=== PATIENT | male | born 1975 | race Caucasian/White ===

== ENCOUNTER 2016-12-18 17:20 | Observation (INO) ==
[2016-12-18] MEDS ORDERED: 0.9 % Sodium Chloride 1,000 ML IVC ONE (17:29)
--- NOTE | 2016-12-18 17:30 | Emergency Department Note ---
Disposition Clinical Impression: New onset seizure, Withdrawal symptoms, alcohol, Hyponatremia Disposition: Admitted As Inpatient Condition: Fair General Adult HPI - General Stated complaint: seizure Time Seen by Provider: 12/18/16 17:23 - Related Data Home Medications Medication Instructions Recorded Confirmed Meloxicam [Mobic] 15 mg PO DAILY 11/28/15 11/28/15 Previous Rx's Medication Instructions Recorded Hydrocodone/Acetaminophen [[place] 1 tab PO TID PRN #15 tab 09/26/15 5-325 Tablet] Aspirin Enteric Coated [Aspirin EC] 325 mg PO BID #40 tablet. 11/28/15 OxyCODONE Immed Rel [Roxicodone 5 5 - 10 mg PO Q6HR PRN #40 tablet 11/28/15 MG] hydrOXYzine pamoate [HydrOXYzine 25 mg PO TID PRN #30 capsule 05/28/16 Pamoate] HYDROcodone/Acet 5/325 mg [[place] 1 tab PO Q6H PRN #8 tab 07/12/16 5-325 mg] Butalb/Acetaminophen/Caffeine 1 each PO BID #20 tablet 07/15/16 [Esgic 50-325-40 mg Tablet] OxyCODONE/APAP 5/325 [Percocet 1 each PO Q6HR PRN #10 tablet 11/15/16 5/325 MG] hydrOXYzine HCl [Hydroxyzine HCl] 25 mg PO TID PRN #20 tab 12/07/16 Famotidine [Pepcid] 40 mg PO DAILY #14 tablet 12/08/16 Allergies Allergy/AdvReac Type Severity Reaction Status Date / Time No Known Allergies Allergy Verified 12/07/16 21:42 Past Medical History - Past Medical History Medical history: Reports: GERD Surgical history: Reports: knee replacement, orthopedic, other Psychiatric history: Reports: no psych history - Social History Smoking Status: Current every day smoker Smokeless Tobacco Status: No Alcohol use: Reports: heavy, recent Drug use: Reports: none Course Vital Signs Temperature 98.8 F 12/18/16 17:22 Pulse Rate 93 12/18/16 17:22 Respiratory Rate 13 12/18/16 17:22 Blood Pressure 129/87 12/18/16 17:22 O2 Sat by Pulse Oximetry 96 12/18/16 17:22 Temperature 98.4 F 12/18/16 21:18 Pulse Rate 85 12/18/16 21:18 Respiratory Rate 16 12/18/16 21:18 Blood Pressure 114/76 12/18/16 21:18 O2 Sat by Pulse Oximetry 95 12/18/16 21:18 Oxygen Delivery Oxygen Delivery Room Air Medical Decision Making - Lab Data Result diagrams: 12/18/16 17:58 12/18/16 17:58 Lab Results 12/18/16 12/18/16 12/18/16 Range/Units 17:58 17:58 17:58 WBC 6.1 (4.3-11.1) K/mcL RBC 4.77 (4.19-5.50) M/mcL Hgb 15.9 (12.9-16.9) g/dL Hct 44.6 (37.5-50.1) % MCV 93.5 (83.0-100.0) fL MCH 33.3 (28.0-33.3) pg MCHC 35.7 H (31.6-35.5) g/dL RDW 12.8 (11.5-14.5) % Plt Count 273 (140-400) K/mcL MPV 9.3 L (9.4-12.4) fL Immature Gran % 0.3 (0-4) % Seg Neutrophils % 63.7 % Lymphocytes % 24.5 % Monocytes % 10.3 % Eosinophils % 1.0 % Basophils % 0.2 % Neutrophils # 3.9 (1.6-8.9) K/mcL Lymphocytes # 1.5 (0.6-4.6) K/mcL Monocytes # 0.6 (0.0-1.3) K/mcL Eosinophils # 0.1 (0.0-0.6) K/mcL Basophils # 0.0 (0.0-0.2) K/mcL Sodium 128 L (136-145) mEq/L Potassium 4.0 (3.5-4.5) mEq/L Chloride 95 L (98-109) mEq/L Carbon Dioxide 24 (19-29) mEq/L BUN 7 L (8-26) mg/dL Creatinine 0.81 (0.72-1.25) mg/dL Est GFR ( Amer) > 60 (> 60) Est GFR (Non-Af Amer) > 60 (> 60) BUN/Creatinine Ratio 9 (6-26) Glucose 107 H (70-99) mg/dL Calculated Osmolality 264 L (280-300) Calcium 9.6 (8.6-10.8) mg/dL Phosphorus 2.3 (2.3-4.7) mg/dL Magnesium 2.2 (1.6-2.6) mg/dL Total Bilirubin 0.2 (0.2-1.2) mg/dL AST 17 (5-34) Units/L ALT 14 (0-55) Units/L Alkaline Phosphatase 95 (38-126) Units/L Serum Total Protein 8.4 H (6.0-8.3) g/dL Albumin 4.3 (3.5-5.0) g/dL Globulin 4.1 H (2.4-3.5) g/dL Albumin/Globulin Ratio 1.0 L (1.1-2.2) Ethyl Alcohol < 10 (0-10) mg/dL Attestation Statement - Attestation Attestation: I examined this patient and my medical decision-making was reviewed with the Resident Physician. I agree with the documented findings, disposition and treatment plan as described except to the extent set forth below. [id number] time provided She arrives from home by EMS. He had a fall with a suspected witnessed seizure. No history of seizure disorders. Patient complains of right knee pain. He admits to drinking alcohol today. Plan of care and management with the resident physician Dr. Saeed 19:28: She states she does not feel back to baseline. He is alert and lucid. He admits to drinking 8-10 16 ounce beers daily for many years. Over the past several days he has cut back on his alcohol intake. I am concerned about alcohol withdrawal
[2016-12-18 18:13] LABS: Basophils % 0.2 %; Eosinophils # 0.1 K/mcL (0.0-0.6); Hematocrit 44.6 % (37.5-50.1); Hemoglobin 15.9 g/dL (12.9-16.9); Immature Granulocytes % 0.3 % (0-4); Lymphocytes # 1.5 K/mcL (0.6-4.6); Lymphocytes % 24.5 %; Mean Corpuscular HGB Conc 35.7 g/dL (31.6-35.5); Mean Corpuscular Hemoglobin 33.3 pg (28.0-33.3); Mean Corpuscular Volume 93.5 fL (83.0-100.0); Mean Platelet Volume 9.3 fL (9.4-12.4); Monocytes # 0.6 K/mcL (0.0-1.3); Monocytes % 10.3 %; Neutrophils # 3.9 K/mcL (1.6-8.9); Platelet Count 273 K/mcL (140-400); Red Blood Count 4.77 M/mcL (4.19-5.50); Red Cell Distribution Width 12.8 % (11.5-14.5); Segmented Neutrophils % 63.7 %
--- NOTE | 2016-12-18 18:20 | Emergency Department Note ---
Disposition Clinical Impression: New onset seizure, Hyponatremia Withdrawal symptoms, alcohol Qualifiers: Complication of substance-induced condition: with unspecified complication Qualified Code(s): F10.239 - Alcohol dependence with withdrawal, unspecified Disposition: Admitted As Inpatient Condition: Fair Time of Disposition: 20:05 General Adult HPI - General Chief complaint: ED Seizure Stated complaint: seizure Time Seen by Provider: 12/18/16 17:23 Source: patient Limitations: no limitations Nursing Notes Reviewed: Yes Vital Signs Reviewed: Yes - History of Present Illness HPI Narrative: 41-year-old male presents to the emergency department via EMS after having a witnessed seizure. This patient does not have any history of seizures. Patient was seizing for approximately 1 minute. He was confused afterwards. Mother concerned that he has not been acting right lately. She states that the has been drinking a lot less alcohol than he normally would drink. Patient states that he is used to drink in 10 16 ounce cans a day and he has been doing that for the past year or so. Patient states that he has only consumed 5 beers in the past few days. He is only drank approximately 24 ounces today. Patient states that his vision is little blurred. Pain Scale: 8 - Related Data Home Medications Medication Instructions Recorded Confirmed Meloxicam [Mobic] 15 mg PO DAILY 11/28/15 11/28/15 Previous Rx's Medication Instructions Recorded Hydrocodone/Acetaminophen [[place] 1 tab PO TID PRN #15 tab 09/26/15 5-325 Tablet] Aspirin Enteric Coated [Aspirin EC] 325 mg PO BID #40 tablet. 11/28/15 OxyCODONE Immed Rel [Roxicodone 5 5 - 10 mg PO Q6HR PRN #40 tablet 11/28/15 MG] hydrOXYzine pamoate [HydrOXYzine 25 mg PO TID PRN #30 capsule 05/28/16 Pamoate] HYDROcodone/Acet 5/325 mg [[place] 1 tab PO Q6H PRN #8 tab 07/12/16 5-325 mg] Butalb/Acetaminophen/Caffeine 1 each PO BID #20 tablet 07/15/16 [Esg[place] 50-325-40 mg Tablet] OxyCODONE/APAP 5/325 [Percocet 1 each PO Q6HR PRN #10 tablet 11/15/16 5/325 MG] hydrOXYzine HCl [Hydroxyzine HCl] 25 mg PO TID PRN #20 tab 12/07/16 Famotidine [Pepcid] 40 mg PO DAILY #14 tablet 12/08/16 Allergies Allergy/AdvReac Type Severity Reaction Status Date / Time No Known Allergies Allergy Verified 12/07/16 21:42 All systems ED: reviewed and negative except as stated. Review of Systems: As Per HPI Constitutional: Reports: weakness. Denies: fever, chills Eyes: Denies: eye pain ENT ED: Denies: ear pain Cardiovascular: Denies: chest pain, palpitations Respiratory: Denies: cough, dyspnea Gastrointestinal: Denies: abdominal pain, nausea, vomiting Genitourinary: Denies: urgency, dysuria Musculoskeletal: Reports: other (Right knee pain). Denies: back pain Integumentary: Denies: rash, abrasion Neurological: Denies: headache Endocrine: Reports: fatigue Past Medical History - Past Medical History Medical history: Reports: GERD Surgical history: Reports: knee replacement, orthopedic, other Psychiatric history: Reports: no psych history - Social History Smoking Status: Current every day smoker Smokeless Tobacco Status: No Alcohol use: Reports: heavy, recent Drug use: Reports: none Physical Exam - General Limitations: no limitations General appearance: alert, in no apparent distress, other (41-year-old male who appears pale) Course Course Narrative: 41-year-old male was a new onset seizure and possible concern for Alcohol withdrawal. CT scan of the head and neck was obtained. This was normal. Patient was complaining of right knee pain. This x-ray was normal as well. The patient was mildly hyponatremic here with a sodium of 128. This is addressed with normal saline. We have also given this patient a banana bag as well. Patient is currently on seizure precautions. He has not had any other seizure in the emergency department today. I admitted this patient to the hospitalist due to concern for alcohol withdrawal and for further workup of this new onset seizure. Patient and family agree with the plan. Hospitalists agreed to admit the patient. Patient was hemodynamically stable at admission. Vital Signs Temperature 98.8 F 12/18/16 17:22 Pulse Rate 93 12/18/16 17:22 Respiratory Rate 13 12/18/16 17:22 Blood Pressure 129/87 12/18/16 17:22 O2 Sat by Pulse Oximetry 96 12/18/16 17:22 Temperature 98.8 F 12/18/16 17:22 Pulse Rate 107 12/18/16 20:01 Respiratory Rate 18 12/18/16 20:01 Blood Pressure 115/92 12/18/16 20:01 O2 Sat by Pulse Oximetry 96 12/18/16 20:01 Oxygen Delivery Oxygen Delivery Room Air Cervical Spine CT 12/18/16 17:31 IMPRESSION: No acute abnormality of the cervical spine. D/ / Mike Emmanuel MD / Mike Emmanuel MD Interpreting Provider: Mike Emmanuel MD Chest X-Ray 12/18/16 17:31 IMPRESSION: No acute abnormality detected. D/ / Erich Villar MD / Erich Villar MD Interpreting Provider: Erich Villar MD Head CT 12/18/16 17:31 IMPRESSION: No acute intracranial abnormality. D/ / Mike Emmanuel MD / Mike Emmanuel MD Interpreting Provider: Mike Emmanuel MD Knee X-Ray 12/18/16 17:32 IMPRESSION: No acute abnormality detected. D/ / Erich Villar MD / Erich Villar MD Interpreting Provider: Erich Villar MD Vital Signs Temperature 98.8 F 12/18/16 17:22 Pulse Rate 93 12/18/16 17:22 Respiratory Rate 13 12/18/16 17:22 Blood Pressure 129/87 12/18/16 17:22 O2 Sat by Pulse Oximetry 96 12/18/16 17:22 Temperature 98.8 F 12/18/16 17:22 Pulse Rate 107 12/18/16 20:01 Respiratory Rate 18 10/14/17 20:01 Blood Pressure 115/92 12/18/16 20:01 O2 Sat by Pulse Oximetry 96 12/18/16 20:01 Oxygen Delivery Oxygen Delivery Room Air Medical Decision Making - Medical Records Medical records reviewed: Yes I reviewed the patient's medical records. - Lab Data Lab results reviewed: Yes I reviewed the patient's lab results. Result diagrams: 12/18/16 17:58 12/18/16 17:58 Lab Results 12/18/16 12/18/16 12/18/16 Range/Units 17:58 17:58 17:58 WBC 6.1 (4.3-11.1) K/mcL RBC 4.77 (4.19-5.50) M/mcL Hgb 15.9 (12.9-16.9) g/dL Hct 44.6 (37.5-50.1) % MCV 93.5 (83.0-100.0) fL MCH 33.3 (28.0-33.3) pg MCHC 35.7 H (31.6-35.5) g/dL RDW 12.8 (11.5-14.5) % Plt Count 273 (140-400) K/mcL MPV 9.3 L (9.4-12.4) fL Immature Gran % 0.3 (0-4) % Seg Neutrophils % 63.7 % Lymphocytes % 24.5 % Monocytes % 10.3 % Eosinophils % 1.0 % Basophils % 0.2 % Neutrophils # 3.9 (1.6-8.9) K/mcL Lymphocytes # 1.5 (0.6-4.6) K/mcL Monocytes # 0.6 (0.0-1.3) K/mcL Eosinophils # 0.1 (0.0-0.6) K/mcL Basophils # 0.0 (0.0-0.2) K/mcL Sodium 128 L (136-145) mEq/L Potassium 4.0 (3.5-4.5) mEq/L Chloride 95 L (98-109) mEq/L Carbon Dioxide 24 (19-29) mEq/L BUN 7 L (8-26) mg/dL Creatinine 0.81 (0.72-1.25) mg/dL Est GFR ( Amer) > 60 (> 60) Est GFR (Non-Af Amer) > 60 (> 60) BUN/Creatinine Ratio 9 (6-26) Glucose 107 H (70-99) mg/dL Calculated Osmolality 264 L (280-300) Calcium 9.6 (8.6-10.8) mg/dL Phosphorus 2.3 (2.3-4.7) mg/dL Magnesium 2.2 (1.6-2.6) mg/dL Total Bilirubin 0.2 (0.2-1.2) mg/dL AST 17 (5-34) Units/L ALT 14 (0-55) Units/L Alkaline Phosphatase 95 (38-126) Units/L Serum Total Protein 8.4 H (6.0-8.3) g/dL Albumin 4.3 (3.5-5.0) g/dL Globulin 4.1 H (2.4-3.5) g/dL Albumin/Globulin Ratio 1.0 L (1.1-2.2) Ethyl Alcohol < 10 (0-10) mg/dL - Radiology Data Radiology results reviewed: Yes I reviewed the patient's radiology results. - EKG Data EKG #1 EKG attestation: Yes I reviewed and interpreted this EKG. EKG results narrative: 17:55 Ventricular rate 86 bpm, FL interval 133 ms, QRS duration 89 ms, QT 337 ms, QTC 380 ms, normal axis. Sinus rhythm with a ventricular rate of 86 bpm. There aresigns of ischemic electrocardiogram changes in comparison to previous EKG on 12/07/2016.
[2016-12-18 18:28] LABS: Alanine Aminotransferase 14 Units/L (0-55); Albumin 4.3 g/dL (3.5-5.0); Alkaline Phosphatase 95 Units/L (38-126); Aspartate Amino Transferase 17 Units/L (5-34); BUN/Creatinine Ratio 9 (6-26); Bilirubin,Total 0.2 mg/dL (0.2-1.2); Blood Urea Nitrogen 7 mg/dL (8-26); Calcium 9.6 mg/dL (8.6-10.8); Carbon Dioxide 24 mEq/L (19-29); Chloride 95 mEq/L (98-109); Globulin 4.1 g/dL (2.4-3.5); Glucose 107 mg/dL (70-99); Magnesium 2.2 mg/dL (1.6-2.6); Osmolality,Calculated 264 (280-300); Phosphorous 2.3 mg/dL (2.3-4.7); Sodium 128 mEq/L (136-145); Total Protein 8.4 g/dL (6.0-8.3); eGFR For African Americans > 60 (> 60); eGFR For Non-African Americans > 60 (> 60)
[2016-12-18] MEDS ORDERED: Acetaminophen 325 MG TABLET PO PRN (21:39)
[2016-12-18] MEDS ORDERED: Ondansetron 4 MG/2 ML VIAL IVP PRN (21:39)
[2016-12-18] MEDS ORDERED: Naloxone 0.4 MG/ML INJ IVP PRN (21:39)
[2016-12-18] MEDS: Thiamine (B-1) 100 MG, Folic Acid 1 MG in 0.9 % Sodium Chloride 50 ML IVPB SCH (21:44)
[2016-12-18] MEDS ORDERED: *HR* LORazepam 2 MG/ML VIAL IVP PRN (21:47)
[2016-12-18] MEDS: Aspirin Enteric Coated 325 MG Tablet PO SCH (22:16)
[2016-12-18] MEDS: 0.9 % Sodium Chloride 1,000 ML IVC SCH (22:16)
[2016-12-18 23:40] LABS: Bilirubin,Urine Negative (Negative); Blood,Urine Negative (Negative); Clarity,Urine Cloudy (Clear); Color,Urine Yellow (Yellow); Glucose,Urine (UA) Normal (Normal); Ketones,Urine Trace mg/dL (Negative); Leukocyte Esterase,Urine Negative (Negative); Nitrite,Urine Negative (Negative); Protein,Urine Negative (Neg-Trace); Specific Gravity,Urine 1.014 (1.010-1.025); Urobilinogen,Urine Normal (Normal)
[2016-12-18 23:43] LABS: Bacteria,Urine None Seen per hpf (None-Few); Hyaline Casts,Urine None Seen per lpf (None-Few); RBC,Urine 0-3 per hpf (0-3); Squamous Epithelial Cell,Urine Moderate per lpf (None-Few)
[2016-12-18 23:46] LABS: Amphetamine Screen,Urine Negative ng/mL (Cutoff=1000); Barbiturate Screen,Urine Negative ng/mL (Cutoff=200); Benzodiazepines Screen,Urine Negative ng/mL (Cutoff=200); Cannabinoid Screen,Urine Negative ng/mL (Cutoff = 50); Cocaine Screen,Urine Negative ng/mL (Cutoff= 300); Opiate Screen,Urine Negative ng/mL (Cutoff=300); Phencyclidine Screen,Urine Negative ng/mL (Cutoff=25)
[2016-12-18 23:53] LABS: Sperm,Urine Present
--- NOTE | 2016-12-19 04:40 | Internal Med History&Physical ---
Date of Encounter: 12/19/16 Time of Encounter: 22:00 Assessment and Plan (1) New onset seizure Current visit: Yes Status: Acute Suspect secondary to relative alcohol withdrawal. Seizure progression and neuro checks ordered. MRI brain and EEG ordered. I do not think that we need to treat him with antiepileptics at this time however morning hospitalist will follow the results and review the case and decides if a neurology consult is necessary. Constant provided to patient and explaining the risks associated with his behavior and alcoholism. (2) Withdrawal symptoms, alcohol Current visit: Yes Status: Acute CIWA protocol ordered thiamine and multivitamin and folic acid ordered Qualifiers: Complication of substance-induced condition: with unspecified complication Qualified Code(s): F10.239 - Alcohol dependence with withdrawal, unspecified (3) Hyponatremia Current visit: Yes Status: Acute Perhaps related to alcoholism repeat in the morning (4) Peripheral neuropathy Current visit: Yes Status: Acute Perhaps related to alcoholism. He is already on Neurontin which she thinks that has not worked. I have suggested to add thiamine multivitamin and folic acid to his regimen Qualifiers: Peripheral neuropathy type: polyneuropathy, unspecified Qualified Code(s): G62.9 - Polyneuropathy, unspecified (5) Tobacco abuse Current visit: No Status: Chronic Counseling provided nicotine patch applied Internal Medicine - H&P: HPI Chief complaint: Seizure Admitted From: Home Plans for Post Hospital Care: Home History of present illness: Mr. Sesay is a 41 year old male who admits being an alcoholic. He drinks 12- 15 beers a day but recently tried to cut down and today had only half of it. He had a witnessed seizure during which he bit his tongue his eyes rolled up and his whole body stiffened. It lasted for a few seconds and then it resolved. He never had any seizure before. As he was brought to ER he became conscious and now he is back to his baseline and fully oriented to time place and person. He is complaining of bilateral lower extremity numbness which is chronic and he has been prescribed Neurontin by his doctors. He denies any headache neck pain abdominal pain nausea vomiting diarrhea dysuria urgency frequency have actually admitted with hematemesis melena. He was complaining of right knee pain however ER obtain multiple x-rays and CAT scan and he is reported to have no new fractures. Past Med Surg Social Fam HX - Past Medical History Medical history: GERD Psychiatric history: no psych history - Past Surgical History Surgical History: knee replacement, orthopedic, other - Social History Smoking Status: Current every day smoker Packs per day: 3/4 Smokeless Tobacco Status: No Alcohol use: heavy, recent Drug use: none - Family History Father Hx Family Cardiac Disorders: Yes (Hypertension, Pacemaker, [place]) Hx Family Respiratory Disorders: No Hx Family Cancer: Yes (Prostate) Hx Family GI Disorders: No Hx Family Genitourinary Disorders: No Hx Family Endocrine Disorder: No Hx Family Musculoskeletal Disorders: No Hx Family Neuromuscular Disorders: No Hx Family Neurologic Disorders: No Hx Family HEENT Disorders: No Hx Family Autoimmune Disorders: No Hx Family Reproductive Disorders: No Hx Family Psychosocial Disorders: No Hx Family Medical Disorders: No Internal Medicine - H&P: Meds Hydrocodone/Acetaminophen [[place] 5-325 Tablet] 1 tab PO TID PRN #15 tab [Rx] Aspirin Enteric Coated [Aspirin EC] 325 mg PO BID #40 tablet. 11/28/15 [Rx] Meloxicam [Mobic] 15 mg PO DAILY 11/28/15 [History] OxyCODONE Immed Rel [Roxicodone 5 MG] 5 - 10 mg PO Q6HR PRN #40 tablet 11/28/15 [Rx] hydrOXYzine pamoate [HydrOXYzine Pamoate] 25 mg PO TID PRN #30 capsule 05/28/16 [Rx] HYDROcodone/Acet 5/325 mg [[place] 5-325 mg] 1 tab PO Q6H PRN #8 tab 07/12/16 [Rx] Butalb/Acetaminophen/Caffeine [Esg[place] 50-325-40 mg Tablet] 1 each PO BID #20 tablet 07/15/16 [Rx] OxyCODONE/APAP 5/325 [Percocet 5/325 MG] 1 each PO Q6HR PRN #10 tablet 11/15/16 [Rx] hydrOXYzine HCl [Hydroxyzine HCl] 25 mg PO TID PRN #20 tab 12/07/16 [Rx] Famotidine [Pepcid] 40 mg PO DAILY #14 tablet 12/08/16 [Rx] 3 Allergy/AdvReac Type Severity Reaction Status Date / Time No Known Allergies Allergy Verified 12/07/16 21:42 All Systems PM: A 10-system review of systems was performed and is negative for pertinent findings except as documented above in the HPI. - Constitutional Constitutional: no chills, no fever(s), no night sweats - EENT Eyes: no change in vision, no discharge, no pain, no photophobia Ears: no ear discharge, no ear pain, no tinnitus Nose, mouth and throat: no dysphagia, no nasal discharge, no neck pain, no sore throat - Cardiovascular Cardiovascular ROS IM: no chest pain, no diaphoresis, no dyspnea, no lightheadedness, no palpitations, no syncope - Respiratory Respiratory: no cough, no dyspnea, no wheezing, no excessive phlegm production - Gastrointestinal Gastrointestinal: no abdominal pain, no diarrhea, no hematemesis, no hematochezia, no melena, no nausea, no vomiting - Musculoskeletal Musculoskeletal ROS IM: no numbness, no tingling - Integumentary Integumentary IM: no rash, no unusual bruising - Neurological Neurological ROS: no confusion, no convulsions, no focal weakness, no numbness, no tingling, no tremor(s) - Hematologic/Lymphatic Hematologic/Lymphatic: no easy bruising - Constitutional Vitals: Temp Pulse Resp BP Pulse Ox 98.6 F 84 16 119/71 96 12/19/16 03:51 12/19/16 03:51 12/19/16 03:51 12/19/16 03:51 12/19/16 03:51 General appearance: Present: A&O X 3, no acute distress, answers questions appropriately - Head Head exam: Present: atraumatic, normocephalic Additional comments: [place] of tongue biting but no active bleed - Eye Eye exam: Present: PERRL, conjuntiva pink, sclera anicteric Pupils: Present: PERRL - Neck Neck exam general surgery: Present: supple, trachea midline. Absent: lymphadenopathy - Respiratory Respiratory exam: Present: CTAB. Absent: accessory muscle use, rales, rhonchi, wheezes - Cardiovascular Cardiovascular exam: Present: RRR, +S1, +S2. Absent: diastolic murmur, gallop, rubs, systolic murmur - GI/Abdominal GI/Abdominal exam: Present: normal bowel sounds, soft, no peritoneal signs. Absent: distended, tenderness - Extremities Exam Extremities exam: Present: warm, radial pulses palpable and symmetrical. Absent : calf tenderness, cyanotic, pedal edema - Neurological Exam Neurological exam: Present: CN II-XII intact, oriented X3, no focal deficits. Absent: pronater drift, facial droop, speech deficit - Skin Skin exam: Present: dry, intact Internal Med - H&P Results - Labs CBC & Chem 7: 12/18/16 17:58 12/18/16 17:58 Labs: Urine 12/18/16 Range/Units 23:22 Urine Color Yellow (Yellow) Urine Clarity Cloudy A (Clear) Urine pH 6.0 (5.0-8.0) pH Units Ur Specific [place] 1.014 (1.010-1.025) Urine Protein Negative (Neg-Trace) mg/dL Urine Glucose (UA) Normal (Normal) mg/dL
[2016-12-19 05:32] LABS: Basophils % 0.2 %; Eosinophils # 0.1 K/mcL (0.0-0.6); Hematocrit 39.4 % (37.5-50.1); Immature Granulocytes % 0.3 % (0-4); Lymphocytes # 2.5 K/mcL (0.6-4.6); Mean Corpuscular HGB Conc 35.5 g/dL (31.6-35.5); Mean Corpuscular Hemoglobin 33.4 pg (28.0-33.3); Mean Platelet Volume 9.7 fL (9.4-12.4); Monocytes # 1.1 K/mcL (0.0-1.3); Neutrophils # 5.2 K/mcL (1.6-8.9); Platelet Count 235 K/mcL (140-400); Red Blood Count 4.19 M/mcL (4.19-5.50); Red Cell Distribution Width 12.7 % (11.5-14.5); Segmented Neutrophils % 58.5 %
[2016-12-19 05:51] LABS: Alanine Aminotransferase 13 Units/L (0-55); Albumin 3.6 g/dL (3.5-5.0); Albumin/Globulin Ratio 1.1 (1.1-2.2); Alkaline Phosphatase 79 Units/L (38-126); Aspartate Amino Transferase 18 Units/L (5-34); BUN/Creatinine Ratio 12 (6-26); Blood Urea Nitrogen 8 mg/dL (8-26); Calcium 8.6 mg/dL (8.6-10.8); Carbon Dioxide 20 mEq/L (19-29); Chloride 105 mEq/L (98-109); Globulin 3.4 g/dL (2.4-3.5); Glucose 81 mg/dL (70-99); Magnesium 2.1 mg/dL (1.6-2.6); Osmolality,Calculated 273 (280-300); Sodium 133 mEq/L (136-145); eGFR For African Americans > 60 (> 60); eGFR For Non-African Americans > 60 (> 60)
[2016-12-19 05:59] LABS: Bilirubin,Total 0.8 mg/dL (0.2-1.2)
[2016-12-19] MEDS: 0.9 % Sodium Chloride 1,000 ML IVC SCH (06:05)
[2016-12-19] MEDS: Aspirin Enteric Coated 325 MG Tablet PO SCH ×2 (08:01→20:00)
[2016-12-19] MEDS: Nicotine 14 MG PATCH.TD24 TD SCH (10:56)
--- NOTE | 2016-12-19 11:05 | Internal Med Progress Note ---
Date of Encounter: 12/19/16 Time of Encounter: 10:50 - Assessment and plan (1) New onset seizure Current Visit: Yes Status: Acute Assessment and plan: Pt reports drinking about 12-15 beers daily, states that yesterday he cut that in half. Seizure was witnessed by family, pt bit his toungue and his eyes rolled up, entire body stiffened. Family reports that it lasted less than 1 minute and resolved. No seizure activity since. Seizure precautions in place. Most likely due to alcohol withdrawl. Pt apparently had post ictal phase and was aware of surroundings by the time he arrived at the ER. New onset, pt has not had a seizure in the past. Head CT negative for intracranial abnormality. MRI and EEG. Consider neurology consult based on results of MRI/EEG (2) Withdrawal symptoms, alcohol Current Visit: Yes Status: Acute Assessment and plan: Most likely the cause of seizure at home. Pt reports heavy drinking since the age of 16. EEG and MRI still pending. Pt has Ativan 1mg q1 hour as needed for withdrawl. Seizure precautions in place. Monitor pt and vital signs. Qualifiers: Complication of substance-induced condition: with unspecified complication Qualified Code(s): F10.239 - Alcohol dependence with withdrawal, unspecified (3) Tobacco abuse Current Visit: Yes Status: Chronic Assessment and plan: Pt smokes 1 PPD and states that he is not interested in quitting. Nicotine patch ordered. (4) Hyponatremia Current Visit: Yes Status: Acute Assessment and plan: Resolving. Most likely do to poor diet and ETOH abuse. IVF have increased sodium to 133 today. Continue to monitor. Pt is able to eat and drink. (5) Peripheral neuropathy Current Visit: Yes Status: Acute Assessment and plan: Pt reports chronic pain and tingling to BLE. Ensure of onset of symptoms, however he states it has been "a while." Pt was unsure of what medication he takes for neuropathy. Will restart Gabapentin when verified by pharmacy. Most likely due to chronic alcoholism. Monitor for safety, fall precautions Gabapentin, home dose. Qualifiers: Peripheral neuropathy type: polyneuropathy, unspecified Qualified Code(s): G62.9 - Polyneuropathy, unspecified (6) DVT prophylaxis Current Visit: Yes Status: Acute Assessment and plan: Encourage early ambulation with assistance. - Time Spent With Patient less than 15 minutes - Subjective Interval history: Pt was seen and assessed at 1050. Two female family members at , questions answered. Pt is alert and awake, poor historian regarding own health history. He is unsure of whether or not he has peripheral neuropathy and what medication he takes for it, he is unaware of how long he has been drinking heavily. Denies n/v/d, SOB, headache, vision changes, chest pain or abd pain. Pt requests to go smoke a cigarette, nicotine patch ordered. Pt also states that he is able to eat and drink, regular diet ordered. - Constitutional Vitals: Temp Pulse Resp BP Pulse Ox 98.7 F 63 17 120/72 97 12/19/16 08:30 12/19/16 08:30 12/19/16 08:30 12/19/16 08:30 12/19/16 08:30 General appearance: Present: cooperative, A&O X 3, pleasant, no acute distress, answers questions appropriately - Head Head exam: Present: atraumatic, normal inspection, normocephalic - Eye Eye exam: Present: EOMI, normal appearance, conjuntiva pink, sclera anicteric - Neck Neck exam general surgery: Present: supple, trachea midline. Absent: lymphadenopathy - Respiratory Respiratory exam: Present: CTAB. Absent: accessory muscle use, chest wall tenderness, rales, respiratory distress, rhonchi, wheezes - Cardiovascular Cardiovascular exam: Present: RRR, +S1, +S2. Absent: diastolic murmur, gallop, rubs, systolic murmur - GI/Abdominal GI/Abdominal exam: Present: hepatomegaly, normal bowel sounds, soft, no peritoneal signs. Absent: distended, tenderness - Extremities Exam Extremities exam: Present: normal capillary refill, normal inspection, warm, radial pulses palpable and symmetrical. Absent: calf tenderness, cyanotic, pedal edema, tenderness - Neurological Exam Neurological exam: Present: alert, oriented X3, no focal deficits, strengths equal and symetr throughout. Absent: facial droop, speech deficit - Skin Skin exam: Present: dry, intact, normal color, warm. Absent: rash Internal Medicine: Result - Labs CBC & Chem 7: 12/19/16 03:00 12/19/16 03:00 Labs: Short CBC 12/19/16 Range/Units 03:00 WBC 8.9 (4.3-11.1) K/mcL Hgb 14.0 D (12.9-16.9) g/dL Hct 39.4 (37.5-50.1) % Plt Count 235 (140-400) K/mcL Neutrophils # 5.2 (1.6-8.9) K/mcL BMP 12/19/16 03:00 Sodium 133 L Potassium 4.0 Chloride 105 Carbon Dioxide 20 BUN 8 Creatinine 0.68 L Glucose 81 Calcium 8.6 Liver Function 12/19/16 Range/Units 03:00 Total Bilirubin 0.8 D (0.2-1.2) mg/dL AST 18 (5-34) Units/L ALT 13 (0-55) Units/L Alkaline Phosphatase 79 (38-126) Units/L Albumin 3.6 (3.5-5.0) g/dL Urine 12/18/16 Range/Units 23:22 Urine Color Yellow (Yellow) Urine Clarity Cloudy A (Clear) Urine pH 6.0 (5.0-8.0) pH Units Ur Specific [place] 1.014 (1.010-1.025) Urine Protein Negative (Neg-Trace) mg/dL Urine Glucose (UA) Normal (Normal) mg/dL Consult Discharge Plan - Plan Referrals: Christie Rasmussen, RV TECHNICIAN [Primary Care Provider] -
[2016-12-19] MEDS: Multivit/Ca/Min/Fe/FA 1 TAB TABLET PO SCH (11:56)
--- NOTE | 2016-12-19 12:33 | Electrocardiograph Report ---
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
[2016-12-19] MEDS ORDERED: hydrOXYzine pamoate 25 MG CAPSULE PO PRN (14:26)
--- NOTE | 2016-12-19 15:30 | Neurology - Consult Note ---
Date of Encounter: 12/19/16 Time of Encounter: 15:28 Assessment and Plan (1) Withdrawal symptoms, alcohol Current Visit: Yes Status: Acute I agree that we are likely dealing with alcohol withdrawal seizure. He does not have a previous history of seizure, there is no other evidence of illicit substances identified, and his neurologic examination is fairly normal. Would expect that he would have had more evidence of sympathetic rebound, as it was not really significant elevation in blood pressure heart rate, or respirations. I do not think that the sodium was low enough to cause neurologic symptoms. Generally expected to be something less than 124 neurologic symptoms occur. Initially regarding agree with EEG and MRI. I would not start AEDs at this time. Further recommendations will be made pending outcome of these tests. Recommend EtOH withdrawal protocol. Agree with smoking cessation program. Agree with thiamine and multivitamin regimen. Qualifiers: Complication of substance-induced condition: with unspecified complication Qualified Code(s): F10.239 - Alcohol dependence with withdrawal, unspecified History of Present Illness HPI: Mr. Sesay is a 41 year old male with a known history of excessive ethanol intake is being seen for neurologic evaluation secondary to suspected seizure. Apparently yesterday he was witnessed to have had a generalized tonic-clonic seizure. He generally drinks only between a 12-15 beers a day but states that he cut down on the day he has seizure to light 1 or 2. He did bite the right side of his tongue and there is some bruising evident there. Currently he feels back to his normal baseline. He denies any headache. He denies ever having a previous episode of seizure. He denied any type of our prior to the event. On admission his sodium was found to be low at 128. His urine tox screen was negative although he apparently has a prescription for lorazepam it was not identified in the urine tox screen. His vital signs of been relatively stable, there is no evidence of sympathetic rebound identified. Past Med Surg Social Fam HX - Past Medical History Medical history: GERD Psychiatric history: no psych history - Past Surgical History Surgical History: knee replacement, orthopedic, other - Social History Smoking Status: Current every day smoker Packs per day: 3/4 Smokeless Tobacco Status: No Alcohol use: heavy, recent Drug use: none - Family History Father Hx Family Cardiac Disorders: Yes (Hypertension, Pacemaker, VA) Hx Family Respiratory Disorders: No Hx Family Cancer: Yes (Prostate) Hx Family GI Disorders: No Hx Family Genitourinary Disorders: No Hx Family Endocrine Disorder: No Hx Family Musculoskeletal Disorders: No Hx Family Neuromuscular Disorders: No Hx Family Neurologic Disorders: No Hx Family HEENT Disorders: No Hx Family Autoimmune Disorders: No Hx Family Reproductive Disorders: No Hx Family Psychosocial Disorders: No Hx Family Medical Disorders: No Medications and Allergies Aspirin Enteric Coated [Aspirin EC] 325 mg PO BID #40 tablet. 11/28/15 [Rx] Meloxicam [Mobic] 15 mg PO DAILY 11/28/15 [History] hydrOXYzine pamoate [HydrOXYzine Pamoate] 25 mg PO TID PRN #30 capsule 05/28/16 [Rx] Famotidine [Pepcid] 40 mg PO DAILY #14 tablet 12/08/16 [Rx] Gabapentin [Neurontin] 300 mg PO TID 12/19/16 [History] Mirtazapine [Remeron] 15 mg PO HS 12/19/16 [History] Multivitamin [One Daily Essential] 1 tab PO DAILY 12/19/16 [History] Venlafaxine HCl [Venlafaxine HCl ER] 75 mg PO DAILY 12/19/16 [History] 3 Allergy/AdvReac Type Severity Reaction Status Date / Time No Known Allergies Allergy Verified 12/07/16 21:42 All Systems: A 10-system review of systems was performed and is negative for pertinent findings except as documented above in the HPI. Review of Systems: 10 point review of systems is consistent with the history of present illness and is otherwise negative. Physical Examination - Vital Signs Vital Signs: Initial Vital Signs Temp Pulse Resp BP Pulse Ox 98.8 F 93 13 129/87 96 12/18/16 17:22 12/18/16 17:22 12/18/16 17:22 12/18/16 17:22 12/18/16 17:22 - Neurologic Detailed motor examination: full strength in all major muscle groups Motor examination - right side: 5/5: deltoids, biceps, triceps, wrist flexion, wrist extension, durable medical equipment technician, hip flexors, tibialis Anterior, quadriceps, toe extension (EHL), plantarflexion Motor examination - left side: 5/5: deltoids, biceps, triceps, wrist flexion, wrist extension, hip flexors, durable medical equipment technician, quadriceps, tibialis Anterior, toe extension (EHL), plantarflexion Reflexes: Biceps: 2+, Triceps: 2+, Brachioradialis: 2+, Achilles: 2+ Mental Status Examination: awake, alert, oriented to person, oriented to place, oriented to time, follows commands appropriately, answers questions appropriately, no agnosia, no aphasia, no aproxia Cranial nerve examination: PERRL, EOMI, visual pacheco intact, corneal reflexes brisk symmetrically, sensory to face intact, mastication intact, no facial asymmetry is present, no dysarthria, hearing is intact symmetrically, soft palate elevates bilaterally upon phonation, gag reflex intact, flexes SCM and trapezius muscles symmetrically with full power, tongue protrudes midline, no atrophy or facial fasiculations present Cerebellar examination: no dysmetria, performs finger to nose and heel to wood symmetrically without ataxia, no gait ataxia, no truncal ataxia, no difficulty with rapid alternating movements Results - Laboratory Findings CBC and BMP: 12/19/16 03:00 12/19/16 03:00 Abnormal lab findings: Abnormal lab results MCH 33.4 pg (28.0-33.3) H 12/19/16 03:00 Sodium 133 mEq/L (136-145) L 12/19/16 03:00 Creatinine 0.68 mg/dL (0.72-1.25) L 12/19/16 03:00 Calculated Osmolality 273 (280-300) L 12/19/16 03:00 Urine Clarity Cloudy (Clear) A 12/18/16 23:22 Urine Ketones Trace mg/dL (Negative) H 12/18/16 23:22 Urine Microscopic WBC 3-5 per hpf (0-3) H 12/18/16 23:22 Ur Squamous Epith Cells Moderate per lpf (None-Few) H 12/18/16 23:22 Consult Discharge Plan - Plan Referrals: Christie Rasmussen, ENGINE MONITOR [Primary Care Provider] -
[2016-12-19] MEDS: Thiamine (B-1) 100 MG, Folic Acid 1 MG in 0.9 % Sodium Chloride 50 ML IVPB SCH (15:55)
[2016-12-19] MEDS: Gabapentin 300 MG CAPSULE PO SCH ×2 (15:55→20:00)
[2016-12-19] MEDS ORDERED: Mirtazapine 15 MG TABLET PO SCH (21:00)
[2016-12-20 05:09] LABS: Basophils % 0.3 %; Eosinophils # 0.2 K/mcL (0.0-0.6); Eosinophils % 2.8 %; Hematocrit 38.7 % (37.5-50.1); Hemoglobin 13.3 g/dL (12.9-16.9); Immature Granulocytes % 0.1 % (0-4); Lymphocytes # 2.7 K/mcL (0.6-4.6); Mean Corpuscular HGB Conc 34.4 g/dL (31.6-35.5); Mean Corpuscular Hemoglobin 33.3 pg (28.0-33.3); Mean Platelet Volume 9.6 fL (9.4-12.4); Monocytes # 0.8 K/mcL (0.0-1.3); Monocytes % 11.4 %; Platelet Count 245 K/mcL (140-400); Red Blood Count 3.99 M/mcL (4.19-5.50); Red Cell Distribution Width 13.1 % (11.5-14.5); Segmented Neutrophils % 44.4 %
[2016-12-20 05:18] LABS: BUN/Creatinine Ratio 16 (6-26); Blood Urea Nitrogen 13 mg/dL (8-26); Carbon Dioxide 25 mEq/L (19-29); Chloride 109 mEq/L (98-109); Glucose 68 mg/dL (70-99); Osmolality,Calculated 290 (280-300); Potassium 4.2 mEq/L (3.5-4.5); eGFR For African Americans > 60 (> 60); eGFR For Non-African Americans > 60 (> 60)
[2016-12-20 05:19] LABS: Sodium 141 mEq/L (136-145)
[2016-12-20] MEDS: Aspirin Enteric Coated 325 MG Tablet PO SCH (08:45)
[2016-12-20] MEDS: Nicotine 14 MG PATCH.TD24 TD SCH (08:46)
[2016-12-20] MEDS: Gabapentin 300 MG CAPSULE PO SCH ×2 (08:46→14:46)
[2016-12-20] MEDS: Multivit/Ca/Min/Fe/FA 1 TAB TABLET PO SCH (08:49)
[2016-12-20] MEDS ORDERED: Famotidine 20 MG TABLET PO SCH (09:00)
[2016-12-20] MEDS ORDERED: Venlafaxine XR (24 HR) 75 MG CAP.ER.24H PO SCH (09:00)
--- NOTE | 2016-12-20 15:25 | EEG/EMG/Oth Biometrics Report ---
EEG Procedure Report Date of procedure: 12/20/16 EEG Procedure: Routine EEG Procedure Note: This is a report of a 21 channel bipolar and referential montage EEG. The posterior dominant rhythm of 8-9 Hz moderate voltage alpha frequency is identified symmetrically in the posterior head regions. This rhythm attenuates symmetrically with eye opening. Hyperventilation is performed and does not significantly alter the recording. Periods of drowsiness and stage II sleep are identified as reference by dropout of the posterior dominant rhythm, and the emergence of vertex activity, K complexes, and sleep spindles. Photic stimulation is performed and produces a symmetric driving response. The EKG rhythm strip reveals normal sinus rhythm at 72 bpm. Impressions: This EEG recording is within normal limits. It is no evidence of epileptiform activity identified during the study. Comment: A normal EEG does not preclude the diagnosis of seizure or epilepsy. If the clinical suspicion for seizure activity is high, serial EEGs or perhaps a prolonged recording may increase the yield. Please correlate clinically.
[2016-12-20 15:31] VITALS: BP 132/83
--- NOTE | 2016-12-20 15:50 | Discharge Summary ---
Date of Encounter: 12/20/16 Time of Encounter: 08:40 - Discharge Diagnosis (1) New onset seizure Priority: Primary Status: Acute Comments: Pt reports drinking about 12-15 beers daily, states that yesterday he cut that in half. Seizure was witnessed by family, pt bit his toungue and his eyes rolled up, entire body stiffened. Family reports that it lasted less than 1 minute and resolved. No seizure activity since. Seizure precautions in place. Most likely due to alcohol withdrawl. Pt apparently had post ictal phase and was aware of surroundings by the time he arrived at the ER. New onset, pt has not had a seizure in the past. Head CT negative for intracranial abnormality. MRI shows mild cerebral atrophy , no acute abnormality. EEG was negative for seizure activity. Discussed alcohol cessation with patient, he states that he can quit whenever he wants to and is not interested in support or cutting back slowly. He says he will just stop drinking. Head CT 12/18/16 17:31 IMPRESSION: No acute intracranial abnormality. D/ / Mike Emmanuel MD / Mike Emmanuel MD Interpreting Provider: Mike Emmanuel MD Brain MRI 12/20/16 21:44 IMPRESSION: Mild cerebral atrophy. No acute brain parenchymal abnormality. D/ / 12/20/2016 11:14:22 Rafia Weir MD / esequiel Interpreting Provider: Rafia Weir MD (2) Withdrawal symptoms, alcohol Priority: Secondary Status: Acute Comments: Withdrawal symptoms most likely the cause of seizures at home. Patient reports he is heavy drinking since age of 16. EEG and MRI were both negative. Head CT was negative. Patient has had Ativan 1 mg every hour as needed for withdrawal symptoms. Plan as above. Qualifiers: Complication of substance-induced condition: with unspecified complication Qualified Code(s): F10.239 - Alcohol dependence with withdrawal, unspecified (3) Tobacco abuse Priority: Secondary Status: Chronic Comments: Patient smokes one pack a day and states he is not interested in smoking cessation. Nicotine patch was ordered. I also will send a prescription home for discharge. (4) Hyponatremia Priority: Secondary Status: Acute Comments: Result. Hyponatremia most likely due to poor diet and EtOH abuse. Patient had IV fluids which helped increase the sodium. Continue to monitor. Patient was able to eat and drink and tolerate a regular diet. (5) Peripheral neuropathy Priority: Secondary Status: Acute Comments: Pt reports chronic pain and tingling to BLE. Ensure of onset of symptoms, however he states it has been "a while." Pt was unsure of what medication he takes for neuropathy. Patient was on gabapentin on her medication list, was restarted here. Most likely due to chronic alcoholism. Qualifiers: Peripheral neuropathy type: polyneuropathy, unspecified Qualified Code(s): G62.9 - Polyneuropathy, unspecified (6) DVT prophylaxis Priority: Secondary Status: Acute Comments: Early ambulation. - Discharge Medications Prescriptions: Nicotine Patch [Nicoderm] 14 mg TD DAILY #28 patch.[id number] Home Medications: Aspirin Enteric Coated [Aspirin EC] 325 mg PO BID #40 tablet. 11/28/15 [Rx] Meloxicam [Mobic] 15 mg PO DAILY 11/28/15 [History] hydrOXYzine pamoate [HydrOXYzine Pamoate] 25 mg PO TID PRN #30 capsule 05/28/16 [Rx] Famotidine [Pepcid] 40 mg PO DAILY #14 tablet 12/08/16 [Rx] Gabapentin [Neurontin] 300 mg PO TID 12/19/16 [History] Mirtazapine [Remeron] 15 mg PO HS 12/19/16 [History] Multivitamin [One Daily Essential] 1 tab PO DAILY 12/19/16 [History] Venlafaxine HCl [Venlafaxine HCl ER] 75 mg PO DAILY 12/19/16 [History] Nicotine Patch [Nicoderm] 14 mg TD DAILY #28 patch.td24 12/20/16 [Rx] Allergies/Adverse Reactions: 3 Allergy/AdvReac Type Severity Reaction Status Date / Time No Known Allergies Allergy Verified 12/07/16 21:42 Procedures/tests Complete & Pending: Procedures Performed prior 72 hours Category Date Time Status MR head/brain wo con [MR] Routine MRI 12/20/16 21:44 Draft Date of admission: 12/18/16 19:53 Primary care physician: Christie Rasmussen CNP Consults: 12/18/16 21:47 Consult to Research Rn Spec [CONS] Routine Reason for SW Consult: Alcohol rehabilitation 12/20/16 12:16 Consult to Interpret Exam [CONS] Routine Consulting Provider: Adam Funes Consult to Interpret Exam: Interpret EEG Discharging clinician: Stephanie Burns Anticipated date of discharge: 12/20/16 - Patient Status Disposition: Home, Self-Care Condition: Good Functional capacity at discharge: independent ambulation Overall status at discharge: patient is back to baseline - Discharge Instructions Follow Up With: Christie Rasmussen, TAILING MACHINE OPERATOR [Primary Care Provider] - Forms: ED Satisfaction Letter Additional Instructions: Follow up with PCP in the next 7-10 days for a follow up visit. Return to the ER as needed for any other problems or concerns. Try to stop smoking. Wean yourself slowly off of alcohol if you are going to quit. Return to your normal activities as tolerated and keep taking your home medications as directed. - Diet and Activity Activity: increase activity as tolerated Diet: advance to your usual diet Hospital course: Mr. Sesay is a 41 year old male with a history of chronic alcoholism who presents with hyponatremia, seizure after drinking half of the amount of alcohol that he normally drinks. Pt with chronic peripheral neuropathy and history of smoking. He has no prior history of seizures. MRI and EEG were negative. Labs are stable and WNL. Vitals are stable. Pt has been seen by neurology and no further follow up is required. Please see assessment and plan for hospital course. Pt is ready for discharge. Time spent discussing smoking cessation with patient: 3 to 10 minutes - Time Spent with Patient Total time spent providing and/or coordinating discharge services: Less than 30 minutes - Constitutional Vitals: Temp Pulse Resp BP Pulse Ox 98.4 F 90 15 132/83 96 12/20/16 15:28 12/20/16 15:28 12/20/16 15:28 12/20/16 15:28 12/20/16 15:28 General appearance: Present: cooperative, A&O X 3, pleasant, no acute distress, answers questions appropriately - Head Head exam: Present: atraumatic, normal inspection, normocephalic - Eye Eye exam: Present: normal appearance, conjuntiva pink, sclera anicteric - Neck Neck exam general surgery: Present: supple, trachea midline. Absent: lymphadenopathy, tenderness - Respiratory Respiratory exam: Present: CTAB. Absent: accessory muscle use, chest wall tenderness, rales, rhonchi, wheezes - Cardiovascular Cardiovascular exam: Present: RRR, +S1, +S2. Absent: diastolic murmur, gallop, rubs, systolic murmur - GI/Abdominal GI/Abdominal exam: Present: normal bowel sounds, soft. Absent: distended, hepatomegaly, tenderness - Extremities Exam Extremities exam: Present: normal capillary refill, normal inspection, warm, radial pulses palpable and symmetrical. Absent: calf tenderness, cyanotic, pedal edema - Neurological Exam Neurological exam: Present: alert, oriented X3, no focal deficits - Skin Skin exam: Present: dry, intact, normal color, warm. Absent: rash
== END 2016-12-20 18:40 | disposition home or self-care (01) ==
LOC: EMEROO 17:20 → 3BNU 17:20
PROVIDERS: ADMIT Internal Medicine; ATTEND Registered Nurse

== ENCOUNTER 2018-03-10 08:08 | Observation (INO) ==
[2018-03-10] MEDS ORDERED: 0.9 % Sodium Chloride 1,000 ML IVC ONE (08:16)
[2018-03-10] MEDS ORDERED: Thiamine (B-1) 100 MG in D5% in Water 50 ML IVPB ONE (08:17)
[2018-03-10] MEDS ORDERED: Folic Acid 1 MG in D5% in Water 50 ML IVPB ONE (08:17)
[2018-03-10] MEDS ORDERED: *HR* LORazepam 2 MG/ML VIAL IVP ONE (08:20)
--- NOTE | 2018-03-10 08:24 | Emergency Department Note ---
Disposition Clinical Impression: Alcohol withdrawal, Hyponatremia Disposition: Admitted As Inpatient Condition: Fair General Adult HPI - General Chief complaint: ED Seizure Stated complaint: poss seizure Time Seen by Provider: 03/10/18 08:11 Source: EMS Limitations: no limitations Nursing Notes Reviewed: Yes Vital Signs Reviewed: Yes - History of Present Illness Pain Scale: 0 - Related Data Home Medications Medication Instructions Recorded Confirmed RX: Multivitamin [One Daily 1 tab PO DAILY 12/19/16 03/10/18 Essential] BuPROPion XL (24 HR) [Wellbutrin 150 mg PO DAILY 03/10/18 03/10/18 XL] Gabapentin [Neurontin] 600 mg PO QID 03/10/18 03/10/18 Ibuprofen [Advil] 400 mg PO DAILY PRN 03/10/18 03/10/18 Melatonin 3 mg PO QPM PRN 03/10/18 03/10/18 Nabumetone 750 mg PO BID 03/10/18 03/10/18 Venlafaxine HCl [Venlafaxine HCl 150 mg PO DAILY 03/10/18 03/10/18 ER] Allergies Allergy/AdvReac Type Severity Reaction Status Date / Time No Known Allergies Allergy Verified 03/10/18 10:12 Past Medical History - Past Medical History Medical history: Reports: GERD Surgical history: Reports: knee replacement, orthopedic, other Psychiatric history: Reports: no psych history - Social History Smoking Status: Current every day smoker Smokeless Tobacco Status: No Alcohol use: Reports: heavy, recent Drug use: Reports: prescription drug abuse Physical Exam - General Limitations: no limitations General appearance: alert, in no apparent distress Course Vital Signs Temperature 98.1 F 03/10/18 08:11 Pulse Rate 91 03/10/18 08:11 Respiratory Rate 20 03/10/18 08:11 Blood Pressure 132/92 03/10/18 08:11 O2 Sat by Pulse Oximetry 99 03/10/18 08:11 Temperature 98.5 F 03/10/18 13:40 Pulse Rate 72 03/10/18 13:40 Respiratory Rate 16 03/10/18 13:40 Blood Pressure 115/78 03/10/18 13:40 O2 Sat by Pulse Oximetry 94 03/10/18 13:40 Oxygen Delivery Oxygen Delivery Room Air Medical Decision Making - [facility] Narrative Medical decision making narrative: Chest X-Ray 03/10/18 08:13 IMPRESSION: No acute cardiopulmonary findings. D/ / Mecca Edwards MD / Mecca Edwards MD Interpreting Provider: Mecca Edwards MD 1115 hrs.: Patient's remained stable here. He does have hyponatremia which she has had before though this is lower than that. I am not certain if that has a history of seizures or not as much as his prior alcohol withdrawal. He was seen by neurology in the past and they did not recommend any antiepileptic medications. Sore neck and place him on a at this point. In for seizure with alcoholism observe to rule out DTs. - Lab Data Result diagrams: 03/10/18 08:14 03/10/18 08:16 Lab Results 03/10/18 03/10/18 03/10/18 Range/Units 08:14 08:16 08:26 WBC 9.4 D (4.3-11.1) K/mcL RBC 4.68 (4.19-5.50) M/mcL Hgb 15.6 D (12.9-16.9) g/dL Hct 43.4 (37.5-50.1) % MCV 92.7 (83.0-100.0) fL MCH 33.3 (28.0-33.3) pg MCHC 35.9 H (31.6-35.5) g/dL RDW 13.8 (11.5-14.5) % Plt Count 315 (140-400) K/mcL MPV 10.0 (9.4-12.4) fL Immature Gran % 0.4 (0-4) % Seg Neutrophils % 68.9 % Lymphocytes % 22.4 % Monocytes % 7.2 % Eosinophils % 1.0 % Basophils % 0.1 % Neutrophils # 6.5 (1.6-8.9) K/mcL Lymphocytes # 2.1 (0.6-4.6) K/mcL Monocytes # 0.7 (0.0-1.3) K/mcL Eosinophils # 0.1 (0.0-0.6) K/mcL Basophils # 0.0 (0.0-0.2) K/mcL Sodium 128 L (136-145) mEq/L Potassium 4.2 (3.5-5.1) mEq/L Chloride 93 L (98-107) mEq/L Carbon Dioxide 22 L (23-29) mEq/L BUN 5 L (6-20) mg/dL Creatinine 0.74 (0.70-1.30) mg/dL Est GFR ( Amer) > 60 (> 60) Est GFR (Non-Af Amer) > 60 (> 60) BUN/Creatinine Ratio 7 (6-26) Glucose 134 H (70-105) mg/dL POC Glucose 123 H (70-99) mg/dL Calculated Osmolality 265 L (280-300) Lactic Acid (0.5-2.2) mmol/L Calcium 9.5 (8.6-10.3) mg/dL Total Bilirubin 0.8 (0.3-1.0) mg/dL AST 26 (13-39) Units/L ALT 16 (7-52) Units/L Alkaline Phosphatase 82 (34-104) Units/L Troponin I < 0.03 (< 0.04) ng/mL Serum Total Protein 7.9 (6.4-8.9) g/dL Albumin 4.9 (3.5-5.7) g/dL Globulin 3.0 (2.4-3.5) g/dL Albumin/Globulin Ratio 1.6 (1.1-2.2) Urine Color (Yellow) Urine Clarity (Clear) Urine pH (5.0-8.0) pH Units Ur Specific [place] (1.010-1.025) Urine Protein (Neg-Trace) mg/dL Urine Glucose (UA) (Normal) mg/dL Urine Ketones (Negative) mg/dL Urine Blood (Negative) Urine Nitrite (Negative) Urine Bilirubin (Negative) Urine Urobilinogen (Normal) mg/dL Ur Leukocyte Esterase (Negative) Urine Microscopic RBC (0-3) per hpf Urine Microscopic WBC (0-3) per hpf Ur Squamous Epith Cells (None-Few) per lpf Urine Bacteria (None-Few) per hpf Hyaline Casts (None-Few) per lpf Ethyl Alcohol < 10 (Less than 10) mg/dL 03/10/18 03/10/18 Range/Units 09:14 09:44 WBC (4.3-11.1) K/mcL RBC (4.19-5.50) M/mcL Hgb (12.9-16.9) g/dL Hct (37.5-50.1) % MCV (83.0-100.0) fL MCH (28.0-33.3) pg MCHC (31.6-35.5) g/dL RDW (11.5-14.5) % Plt Count (140-400) K/mcL MPV (9.4-12.4) fL Immature Gran % (0-4) % Seg Neutrophils % % Lymphocytes % % Monocytes % % Eosinophils % % Basophils % % Neutrophils # (1.6-8.9) K/mcL Lymphocytes # (0.6-4.6) K/mcL Monocytes # (0.0-1.3) K/mcL Eosinophils # (0.0-0.6) K/mcL Basophils # (0.0-0.2) K/mcL Sodium (136-145) mEq/L Potassium (3.5-5.1) mEq/L Chloride (98-107) mEq/L Carbon Dioxide (23-29) mEq/L BUN (6-20) mg/dL Creatinine (0.70-1.30) mg/dL Est GFR ( Amer) (> 60) Est GFR (Non-Af Amer) (> 60) BUN/Creatinine Ratio (6-26) Glucose (70-105) mg/dL POC Glucose (70-99) mg/dL Calculated Osmolality (280-300) Lactic Acid 1.9 (0.5-2.2) mmol/L Calcium (8.6-10.3) mg/dL Total Bilirubin (0.3-1.0) mg/dL AST (13-39) Units/L ALT (7-52) Units/L Alkaline Phosphatase (34-104) Units/L Troponin I (< 0.04) ng/mL Serum Total Protein (6.4-8.9) g/dL Albumin (3.5-5.7) g/dL Globulin (2.4-3.5) g/dL Albumin/Globulin Ratio (1.1-2.2) Urine Color Dark Yellow (Yellow) Urine Clarity Hazy (Clear) Urine pH 6.5 (5.0-8.0) pH Units Ur Specific [place] 1.023 (1.010-1.025) Urine Protein 100 H (Neg-Trace) mg/dL Urine Glucose (UA) Normal (Normal) mg/dL Urine Ketones Trace H (Negative) mg/dL Urine Blood Negative (Negative) Urine Nitrite Negative (Negative) Urine Bilirubin Negative (Negative) Urine Urobilinogen Normal (Normal) mg/dL Ur Leukocyte Esterase Negative (Negative) Urine Microscopic RBC 5-15 H (0-3) per hpf Urine Microscopic WBC 3-5 H (0-3) per hpf Ur Squamous Epith Cells Many H (None-Few) per lpf Urine Bacteria None Seen (None-Few) per hpf Hyaline Casts None Seen (None-Few) per lpf Ethyl Alcohol (Less than 10) mg/dL Attestation Statement - Attestation Attestation: This documentation is done with the assistance of Dragon dictation. Despite efforts made to ensure accuracy, there may be inaccuracies in special crimes investigator or spelling and typographical errors. I examined this patient and my medical decision-making was reviewed with the [facility] Physician. I agree with the documented findings, disposition and treatment plan as described except to the extent set forth below. Patient seen and evaluated on arrival with EMS and Dr. Guevara, I agree with his evaluation management plan, I supervised care the patient's stay. Per EMS patient had a seizure per family this morning history of seizures but none for a while. Apparently 3 seizures in the past 30 days to obtuse 2 months. Patient states he was on medication but not now. Looking through her old chart looks like these were alcohol withdrawal seizures which is what I suspect today. He said he last drank about midnight last night. He is little bit shaky now. But he is awake. Poor historian may be postictal. When a treat him as now culture all seizure and reassess and most likely will need admission.
[2018-03-10 08:53] LABS: Basophils % 0.1 %; Eosinophils # 0.1 K/mcL (0.0-0.6); Hematocrit 43.4 % (37.5-50.1); Immature Granulocytes % 0.4 % (0-4); Lymphocytes # 2.1 K/mcL (0.6-4.6); Lymphocytes % 22.4 %; Mean Corpuscular HGB Conc 35.9 g/dL (31.6-35.5); Mean Corpuscular Hemoglobin 33.3 pg (28.0-33.3); Mean Corpuscular Volume 92.7 fL (83.0-100.0); Monocytes # 0.7 K/mcL (0.0-1.3); Monocytes % 7.2 %; Neutrophils # 6.5 K/mcL (1.6-8.9); Platelet Count 315 K/mcL (140-400); Red Blood Count 4.68 M/mcL (4.19-5.50); Red Cell Distribution Width 13.8 % (11.5-14.5); Segmented Neutrophils % 68.9 %
--- NOTE | 2018-03-10 08:58 | Emergency Department Note ---
Disposition Clinical Impression: Hyponatremia Alcohol withdrawal Qualifiers: Complication of substance-induced condition: with unspecified complication Qualified Code(s): F10.239 - Alcohol dependence with withdrawal, unspecified Disposition: Admitted As Inpatient Condition: Fair Time of Disposition: 15:29 General Adult HPI - General Chief complaint: ED Seizure Stated complaint: poss seizure Time Seen by Provider: 03/10/18 08:11 Source: EMS Mode of arrival: EMS Limitations: no limitations Nursing Notes Reviewed: Yes Vital Signs Reviewed: Yes - History of Present Illness HPI Narrative: Patient is a 43-year-old male with past medical history of alcoholism as well as questionable seizure disorder presents emergency Department by squad with concerns for seizure-like activity. According to EMS at around 7:40AM the patient is poured it had a seizure by his parents in which she lives with. They state upon their arrival patient was not actively seizing was able to answer questions appropriately. According to EMS report family states the patient has had intermittent seizures over the past 3 days. Patient himself is a poor historian. He answers I do not know to majority of my questions. States he drinks roughly at least one 12 pack of beer daily. He states that he does not want to drink anymore and he wants to quit. He denies any other drug use. States that he takes medicines everyday however he is unsure which medicines he takes his parents make sure that he takes them. At this time he denies any fevers, headache, chills, focal neurological deficit, chest pain, dyspnea, cough, abdominal pain. Pain Scale: 0 - Related Data Home Medications Medication Instructions Recorded Confirmed Multivitamin [One Daily Essential] 1 tab PO DAILY 12/19/16 03/10/18 BuPROPion XL (24 HR) [Wellbutrin 150 mg PO DAILY 03/10/18 03/10/18 XL] Gabapentin [Neurontin] 600 mg PO QID 03/10/18 03/10/18 Ibuprofen [Advil] 400 mg PO DAILY PRN 03/10/18 03/10/18 Melatonin 3 mg PO QPM PRN 03/10/18 03/10/18 Nabumetone 750 mg PO BID 03/10/18 03/10/18 Venlafaxine HCl [Venlafaxine HCl 150 mg PO DAILY 03/10/18 03/10/18 ER] Allergies Allergy/AdvReac Type Severity Reaction Status Date / Time No Known Allergies Allergy Verified 03/10/18 10:12 All systems ED: reviewed and negative except as stated. Review of Systems: As Per HPI Constitutional: Denies: fever, chills Cardiovascular: Denies: chest pain, palpitations Respiratory: Denies: cough, dyspnea, wheezes, sputum production Gastrointestinal: Denies: abdominal pain, nausea, vomiting, diarrhea Genitourinary: Denies: dysuria Musculoskeletal: Denies: back pain, neck pain Integumentary: Denies: rash Neurological: Denies: headache, weakness, numbness, paresthesias, confusion, abnormal gait, vertigo Past Medical History - Past Medical History Attestation: Yes The following information was validated with the patient. Medical history: Reports: GERD Surgical history: Reports: knee replacement, orthopedic, other Psychiatric history: Reports: no psych history - Social History Smoking Status: Current every day smoker Smokeless Tobacco Status: No Alcohol use: Reports: heavy, recent Drug use: Reports: prescription drug abuse Physical Exam - General Limitations: no limitations General appearance: alert, other (mild diffuse tremor) - Head Head exam: atraumatic, normocephalic, normal inspection - Eye Eye exam: Present: normal appearance, PERRL, EOMI - ENT ENT exam: normal exam, normal oropharynx, mucous membranes dry - Neck Neck exam: Present: normal inspection, full ROM, trachea midline - Chest Chest inspection: Present: normal inspection, symmetric chest wall rise - Respiratory Respiratory exam: Present: normal lung sounds bilaterally. Absent: respiratory distress, wheezes - Cardiovascular Cardiovascular exam: Present: tachycardia, +S1, +S2 - Abdominal Exam Abdominal exam: Present: soft, Non-Tender. Absent: tenderness, distention, guarding, rebound, rigidity - Extremities Exam Extremities exam: Present: normal inspection, full ROM. Absent: tenderness, pedal edema - Back Exam Back exam: Present: normal inspection, full ROM. Absent: tenderness Course Course Narrative: Patient underwent evaluation for alcohol withdrawals as well as seizure-like activity. Basic labs were drawn showed a mild hyponatremia. Patient received dose of Ativan as well as vitamin supplementation liter of fluids. Symptoms and tremors have improved after this. Upon review of the records patient has been seen by neurology in the past which she had a workup done including an EEG is out of the time that the patient not have a seizure disorder. I discussed patient's case with the hospitalist on-call, Dr. Beasley, he agrees to accept the patient for EtOH withdrawals. Vital Signs Temperature 98.1 F 03/10/18 08:11 Pulse Rate 91 03/10/18 08:11 Respiratory Rate 20 03/10/18 08:11 Blood Pressure 132/92 03/10/18 08:11 O2 Sat by Pulse Oximetry 99 03/10/18 08:11 Temperature 98.5 F 03/10/18 13:40 Pulse Rate 72 03/10/18 13:40 Respiratory Rate 16 03/10/18 13:40 Blood Pressure 115/78 03/10/18 13:40 O2 Sat by Pulse Oximetry 94 03/10/18 13:40 Oxygen Delivery Oxygen Delivery Room Air Medical Decision Making - Medical Records Medical records reviewed: Yes I reviewed the patient's medical records. - Lab Data Lab results reviewed: Yes I reviewed the patient's lab results. Result diagrams: 03/10/18 08:14 03/10/18 08:16 Lab Results 03/10/18 03/10/18 03/10/18 Range/Units 08:14 08:16 08:26 WBC 9.4 D (4.3-11.1) K/mcL RBC 4.68 (4.19-5.50) M/mcL Hgb 15.6 D (12.9-16.9) g/dL Hct 43.4 (37.5-50.1) % MCV 92.7 (83.0-100.0) fL MCH 33.3 (28.0-33.3) pg MCHC 35.9 H (31.6-35.5) g/dL RDW 13.8 (11.5-14.5) % Plt Count 315 (140-400) K/mcL MPV 10.0 (9.4-12.4) fL Immature Gran % 0.4 (0-4) % Seg Neutrophils % 68.9 % Lymphocytes % 22.4 % Monocytes % 7.2 % Eosinophils % 1.0 % Basophils % 0.1 % Neutrophils # 6.5 (1.6-8.9) K/mcL Lymphocytes # 2.1 (0.6-4.6) K/mcL Monocytes # 0.7 (0.0-1.3) K/mcL Eosinophils # 0.1 (0.0-0.6) K/mcL Basophils # 0.0 (0.0-0.2) K/mcL Sodium 128 L (136-145) mEq/L Potassium 4.2 (3.5-5.1) mEq/L Chloride 93 L (98-107) mEq/L Carbon Dioxide 22 L (23-29) mEq/L BUN 5 L (6-20) mg/dL Creatinine 0.74 (0.70-1.30) mg/dL Est GFR ( Amer) > 60 (> 60) Est GFR (Non-Af Amer) > 60 (> 60) BUN/Creatinine Ratio 7 (6-26) Glucose 134 H (70-105) mg/dL POC Glucose 123 H (70-99) mg/dL Calculated Osmolality 265 L (280-300) Lactic Acid (0.5-2.2) mmol/L Calcium 9.5 (8.6-10.3) mg/dL Total Bilirubin 0.8 (0.3-1.0) mg/dL AST 26 (13-39) Units/L ALT 16 (7-52) Units/L Alkaline Phosphatase 82 (34-104) Units/L Troponin I < 0.03 (< 0.04) ng/mL Serum Total Protein 7.9 (6.4-8.9) g/dL Albumin 4.9 (3.5-5.7) g/dL Globulin 3.0 (2.4-3.5) g/dL Albumin/Globulin Ratio 1.6 (1.1-2.2) Urine Color (Yellow) Urine Clarity (Clear) Urine pH (5.0-8.0) pH Units Ur Specific [place] (1.010-1.025) Urine Protein (Neg-Trace) mg/dL Urine Glucose (UA) (Normal) mg/dL Urine Ketones (Negative) mg/dL Urine Blood (Negative) Urine Nitrite (Negative) Urine Bilirubin (Negative) Urine Urobilinogen (Normal) mg/dL Ur Leukocyte Esterase (Negative) Urine Microscopic RBC (0-3) per hpf Urine Microscopic WBC (0-3) per hpf Ur Squamous Epith Cells (None-Few) per lpf Urine Bacteria (None-Few) per hpf Hyaline Casts (None-Few) per lpf Ethyl Alcohol < 10 (Less than 10) mg/dL 03/10/18 03/10/18 Range/Units 09:14 09:44 WBC (4.3-11.1) K/mcL RBC (4.19-5.50) M/mcL Hgb (12.9-16.9) g/dL Hct (37.5-50.1) % MCV (83.0-100.0) fL MCH (28.0-33.3) pg MCHC (31.6-35.5) g/dL RDW (11.5-14.5) % Plt Count (140-400) K/mcL MPV (9.4-12.4) fL Immature Gran % (0-4) % Seg Neutrophils % % Lymphocytes % % Monocytes % % Eosinophils % % Basophils % % Neutrophils # (1.6-8.9) K/mcL Lymphocytes # (0.6-4.6) K/mcL Monocytes # (0.0-1.3) K/mcL Eosinophils # (0.0-0.6) K/mcL Basophils # (0.0-0.2) K/mcL Sodium (136-145) mEq/L Potassium (3.5-5.1) mEq/L Chloride (98-107) mEq/L Carbon Dioxide (23-29) mEq/L BUN (6-20) mg/dL Creatinine (0.70-1.30) mg/dL Est GFR ( Amer) (> 60) Est GFR (Non-Af Amer) (> 60) BUN/Creatinine Ratio (6-26) Glucose (70-105) mg/dL POC Glucose (70-99) mg/dL Calculated Osmolality (280-300) Lactic Acid 1.9 (0.5-2.2) mmol/L Calcium (8.6-10.3) mg/dL Total Bilirubin (0.3-1.0) mg/dL AST (13-39) Units/L ALT (7-52) Units/L Alkaline Phosphatase (34-104) Units/L Troponin I (< 0.04) ng/mL Serum Total Protein (6.4-8.9) g/dL Albumin (3.5-5.7) g/dL Globulin (2.4-3.5) g/dL Albumin/Globulin Ratio (1.1-2.2) Urine Color Dark Yellow (Yellow) Urine Clarity Hazy (Clear) Urine pH 6.5 (5.0-8.0) pH Units Ur Specific [place] 1.023 (1.010-1.025) Urine Protein 100 H (Neg-Trace) mg/dL Urine Glucose (UA) Normal (Normal) mg/dL Urine Ketones Trace H (Negative) mg/dL Urine Blood Negative (Negative) Urine Nitrite Negative (Negative) Urine Bilirubin Negative (Negative) Urine Urobilinogen Normal (Normal) mg/dL Ur Leukocyte Esterase Negative (Negative) Urine Microscopic RBC 5-15 H (0-3) per hpf Urine Microscopic WBC 3-5 H (0-3) per hpf Ur Squamous Epith Cells Many H (None-Few) per lpf Urine Bacteria None Seen (None-Few) per hpf Hyaline Casts None Seen (None-Few) per lpf Ethyl Alcohol (Less than 10) mg/dL - Radiology Data Radiology results reviewed: Yes I reviewed the patient's radiology results. Chest X-Ray 03/10/18 08:13 IMPRESSION: No acute cardiopulmonary findings. D/ / Mecca Edwards MD / Mecca Edwadrs MD Interpreting Provider: Mecca Edwards MD - EKG Data EKG #1 EKG attestation: Yes I reviewed and interpreted this EKG. EKG results narrative: EKG done at 9:38 shows sinus rhythm at a rate of 85 bpm. Normal axis. Intervals within normal limits. No signs of ST elevation, ST depression or Q waves present.
[2018-03-10 09:01] LABS: Hemoglobin 15.6 g/dL (12.9-16.9)
[2018-03-10 09:11] LABS: Troponin I < 0.03 ng/mL (< 0.04)
[2018-03-10 09:12] LABS: Alanine Aminotransferase 16 Units/L (7-52); Albumin 4.9 g/dL (3.5-5.7); Albumin/Globulin Ratio 1.6 (1.1-2.2); Alkaline Phosphatase 82 Units/L (34-104); Aspartate Amino Transferase 26 Units/L (13-39); BUN/Creatinine Ratio 7 (6-26); Bilirubin,Total 0.8 mg/dL (0.3-1.0); Blood Urea Nitrogen 5 mg/dL (6-20); Calcium 9.5 mg/dL (8.6-10.3); Carbon Dioxide 22 mEq/L (23-29); Chloride 93 mEq/L (98-107); Ethanol < 10 mg/dL (Less than 10); Glucose 134 mg/dL (70-105); Osmolality,Calculated 265 (280-300); Potassium 4.2 mEq/L (3.5-5.1); Sodium 128 mEq/L (136-145); Total Protein 7.9 g/dL (6.4-8.9); eGFR For Non-African Americans > 60 (> 60)
[2018-03-10 09:56] LABS: Bilirubin,Urine Negative (Negative); Blood,Urine Negative (Negative); Color,Urine Dark Yellow (Yellow); Glucose,Urine (UA) Normal (Normal); Ketones,Urine Trace mg/dL (Negative); Leukocyte Esterase,Urine Negative (Negative); Nitrite,Urine Negative (Negative); PH,Urine 6.5 pH Units (5.0-8.0); Protein,Urine 100 mg/dL (Neg-Trace); Specific Gravity,Urine 1.023 (1.010-1.025); Urobilinogen,Urine Normal (Normal)
[2018-03-10 10:03] LABS: Bacteria,Urine None Seen per hpf (None-Few); Hyaline Casts,Urine None Seen per lpf (None-Few); Squamous Epithelial Cell,Urine Many per lpf (None-Few)
[2018-03-10 10:08] LABS: Clarity,Urine Hazy (Clear)
[2018-03-10] MEDS ORDERED: Naloxone 0.4 MG/ML INJ IVP PRN (14:46)
[2018-03-10] MEDS ORDERED: Ondansetron 4 MG/2 ML VIAL IVP PRN (15:16)
[2018-03-10] MEDS ORDERED: D5% in 0.9% NACL 1,000 ML IVC SCH (15:30)
[2018-03-10] MEDS ORDERED: *HR* LORazepam 2 MG/ML VIAL IVP PRN (15:50)
[2018-03-10] MEDS ORDERED: diazePAM 10 MG/2 ML SYRINGE IVP PRN (15:50)
[2018-03-10] MEDS ORDERED: *HR* Promethazine 25 MG/ML VIAL IVP PRN (15:50)
[2018-03-10] MEDS: Gabapentin 300 MG CAPSULE PO SCH ×2 (16:16→20:59)
--- NOTE | 2018-03-10 17:18 | Electrocardiograph Report ---
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
[2018-03-10] MEDS ORDERED: Nicotine 21 MG PATCH.TD24 TD ONE (18:44)
[2018-03-10] MEDS: Melatonin 3 MG TABLET PO PRN (22:52)
--- NOTE | 2018-03-10 23:11 | Internal Med History&Physical ---
Date of Encounter: 03/10/18 Time of Encounter: 17:00 Internal Medicine - H&P: HPI Admitted From: Home Plans for Post Hospital Care: Home History of present illness: The patient is a 43-year-old male. He has had long-standing history of alcoholism. He drinks average 12-16 beers per day. The last one happened last night around midnight. It was in the morning when he experienced a syncopal episode at home. He was found on the floor of his residence by his parents. There were observing some type of shakiness of his arms and legs. Heat did not look like a typical grand mal seizure attack. The patient feels pretty good. However, it looks like he is developing some nervousness with some diaphoresis and sweating. He may be developing withdrawal symptoms/signs PAST MEDICAL HX: He has had long-standing chronic alcoholism. He is treated for low back pain and depression with anxiety. PAST FAMILY HX: See below.. <----------------------- PAST SOCIAL HX: Chronic alcoholism. Drinks average 12-16 beers per day. He smokes average one pack of cigarettes per day; started as a teenager. REVIEW OF SYSTEMS: All 14 organ systems were reviewed by me with the patient. Positive and pertinent negative findings are listed above. The rest of organ systems is negative. PHYSICAL EXAM: Skin: Free of rash and discoloration. Eyes: Sclera is white. There is no discharge from eyes. ENMT: Oral/pharyngeal mucosa is normal in appearance. There is no discharge from nose or ears. Respiratory: Normal breath sounds with no crackles and wheezes bilaterally. CV: Heart is regular with no gallop or murmur. GI: Abdomen is flat and soft with no palpable mass or visceromegaly. : There is no tenderness in patient's flanks bilaterally. Neuro exam: He has good strength in upper and lower extremities. He has normal eye movements. He does have a low bit of tremor of his hands and feet. With some sweating. Psychiatric: He has normal affect. His thought process is appropriate to the situation. ADDITIONAL DATA: CBC is normal. His sodium is 128 with the rest of BMP being normal. Liver function tests are normal. Troponin was checked is normal. UA shows microscopic hematuria. A/P: Syncope or near syncope; developed shortly before this admission. He could be hypoglycemic there. We will check his random glucose now. It was 123 at 8:26 AM. I doubt he has had a seizure attack. Chronic alcoholism. He is a developing withdrawal symptoms/signs. I will start him on alcohol withdrawal protocol. Hyponatremia. We will give him 1 L of D5 normal saline. We will check his electrolytes tomorrow morning. Chronic low back pain/depression with anxiety. To continue his previous medications. Past Med Surg Social Fam HX - Past Medical History Medical history: GERD Additional medical history: Substance abuse Psychiatric history: depression - Past Surgical History Surgical History: knee replacement, orthopedic, other Additional surgical history: right knee - Social History Smoking Status: Current every day smoker Packs per day: 1 Smokeless Tobacco Status: No Alcohol use: heavy, recent Drug use: none - Family History Father Age: 71 Living Status: Still Living Hx Family Cardiac Disorders: Yes (Hypertension, Pacemaker, SD) Hx Family Respiratory Disorders: No Hx Family Cancer: Yes (Prostate) Hx Family GI Disorders: No Hx Family Endocrine Disorder: No Hx Family Neuromuscular Disorders: No Hx Family Neurologic Disorders: No Hx Family HEENT Disorders: No Hx Family Autoimmune Disorders: No Internal Medicine - H&P: Meds Multivitamin [One Daily Essential] 1 tab PO DAILY 12/19/16 [History] BuPROPion XL (24 HR) [Wellbutrin XL] 150 mg PO DAILY 03/10/18 [History] Gabapentin [Neurontin] 600 mg PO QID 03/10/18 [History] Ibuprofen [Advil] 400 mg PO DAILY PRN 03/10/18 [History] Melatonin 3 mg PO QPM PRN 03/10/18 [History] Nabumetone 750 mg PO BID 03/10/18 [History] Venlafaxine HCl [Venlafaxine HCl ER] 150 mg PO DAILY 03/10/18 [History] Allergy/AdvReac Type Severity Reaction Status Date / Time No Known Allergies Allergy Verified 03/10/18 10:12 - Constitutional Vitals: Temp Pulse Resp BP Pulse Ox 98.6 F 66 18 126/87 94 03/10/18 16:39 03/10/18 20:41 03/10/18 20:41 03/10/18 20:41 03/10/18 20:41 General appearance: Present: A&O X 3, no acute distress, answers questions appropriately Exam: xx Internal Med - H&P Results - Labs CBC & Chem 7: 03/10/18 08:14 03/10/18 08:16 Labs: Short CBC 03/10/18 Range/Units 08:14 WBC 9.4 D (4.3-11.1) K/mcL Hgb 15.6 D (12.9-16.9) g/dL Hct 43.4 (37.5-50.1) % Plt Count 315 (140-400) K/mcL Neutrophils # 6.5 (1.6-8.9) K/mcL BMP 03/10/18 08:16 Sodium 128 L Potassium 4.2 Chloride 93 L Carbon Dioxide 22 L BUN 5 L Creatinine 0.74 Glucose 134 H Calcium 9.5 Cardiac Enzymes 03/10/18 Range/Units 08:16 Troponin I < 0.03 (< 0.04) ng/mL Liver Function 03/10/18 Range/Units 08:16 Total Bilirubin 0.8 (0.3-1.0) mg/dL AST 26 (13-39) Units/L ALT 16 (7-52) Units/L Alkaline Phosphatase 82 (34-104) Units/L Albumin 4.9 (3.5-5.7) g/dL Urine 03/10/18 Range/Units 09:44 Urine Color Dark Yellow (Yellow) Urine Clarity Hazy (Clear) Urine pH 6.5 (5.0-8.0) pH Units Ur Specific [place] 1.023 (1.010-1.025) Urine Protein 100 H (Neg-Trace) mg/dL Urine Glucose (UA) Normal (Normal) mg/dL - Impressions ITS Impressions Chest X-Ray 03/10/18 08:13 IMPRESSION: No acute cardiopulmonary findings. D/ / Mecca Edwards MD / Mecca Edwards MD Interpreting Provider: Mecca Edwards MD - Assessment and plan (1) Syncope Current Visit: Yes Status: Acute Qualifiers: Syncope type: unspecified Qualified Code(s): R55 - Syncope and collapse (2) Alcohol abuse Current Visit: Yes Status: Chronic (3) Alcohol withdrawal Current Visit: Yes Status: Acute Qualifiers: Complication of substance-induced condition: uncomplicated Qualified Code(s): F10.230 - Alcohol dependence with withdrawal, uncomplicated (4) Hyponatremia Current Visit: Yes Status: Acute (5) Low back pain Current Visit: Yes Status: Chronic Qualifiers: Chronicity: chronic Back pain laterality: midline Sciatica presence: without sciatica Qualified Code(s): M54.5 - Low back pain; G89.29 - Other chronic pain - Time Spent With Patient Total time spent is greater than 50% in coordination of care (as documented) at patient's floor/unit and/or counseling patient: 25 - 35 minutes - VTE Reasons for not Prescribing Prophylaxis: Treatment not Indicated - Low risk for VTE Deep Vein Thrombosis/Pulmonary Embolism Present on Admission: No
[2018-03-11 04:59] LABS: Magnesium 2.2 mg/dL (1.6-2.6); Potassium 3.6 mEq/L (3.5-5.1)
[2018-03-11] MEDS: Nicotine 21 MG PATCH.TD24 TD SCH (09:39)
[2018-03-11] MEDS: Multivit/Ca/Min/Fe/FA 1 TAB TABLET PO SCH (09:39)
[2018-03-11] MEDS: Gabapentin 300 MG CAPSULE PO SCH ×4 (09:39→21:13)
[2018-03-11] MEDS: Vitamin B Complex/Vit C/Vit E 1 EACH TABLET PO SCH (09:39)
[2018-03-11] MEDS: Folic Acid 1 MG TABLET PO SCH (09:39)
[2018-03-11] MEDS: Thiamine (B-1) 100 MG TABLET PO SCH (09:39)
[2018-03-11] MEDS: Venlafaxine XR (24 HR) 150 MG CAP.ER.24H PO SCH (09:39)
[2018-03-11] MEDS: BuPROPion XL (24 HR) 150 MG TABLET PO SCH (09:39)
--- NOTE | 2018-03-11 11:08 | Internal Med Progress Note ---
Hospitalist Progress Note - Encounter Date of Encounter: 03/11/18 Time of Encounter: 11:04 - Subjective Interval History: Mr Sesay is currently in observation for presumed alcohol withdrawal and probable seizure. He remains moderate to high risk due to potential for worsening clinical status. Mr Sesay is awake and alert. No further episodes since admission. Does not feel shaky. No fever or chills. No chest pain. No abd pain. Wants to get up and move around and see how he feels. - Exam Vitals: Temp Pulse Resp BP Pulse Ox 97.9 F 64 15 119/81 98 03/11/18 10:57 03/11/18 10:57 03/11/18 10:57 03/11/18 10:57 03/11/18 10:57 Exam: General: Alert and oriented. Comfortable at this time. Very thin. Skin: Normal color, no rash, no lesions. H: Normocephalic. EENT: EOMI, pupils equal. Mucus membranes moist. No lesion. Cardiovascular: Normal S1 & S2, no murmurs or gallops. Pulse regular. No tachycardia. Lungs: Normal breath sounds, no wheezes or crackles. Abdomen: Soft, non-tender, no rigidity. Normal bowel sounds. Extremities: No deformity, no edema or tenderness Neurological: Normal cognition and motor skills. No tremor noted. Pulses: Carotid and radial pulses normal +2. Rest of the physical exam is non contributory - Assessment and Plan (1) Alcohol withdrawal Current Visit: Yes Status: Acute Assessment and Plan: Pt with hx of chronic alcohol abuse. Last drink was Thurs PM and level was <10 on admission Suspect he has had withdrawal seizure. Currently he has no tremor or any symptoms. (2) Alcohol abuse Current Visit: Yes Status: Chronic Assessment and Plan: Pt states he has been to some classes in the past. Feels he is able to quit again on his own (has for 5 years in past but restarted due to others drinking around him) Supportive care. He does not feel he needs to talk with anyone at this time. (3) Syncope Current Visit: Yes Status: Acute Assessment and Plan: Suspect syncope related to ETOH withdrawal. Has been given IV fluids. No cardiac arrythmia noted. (4) Hyponatremia Current Visit: Yes Status: Acute Assessment and Plan: Improving with fluid hydration. (5) Low back pain Current Visit: Yes Status: Chronic Assessment and Plan: Chronic issue. (6) Tobacco abuse Current Visit: No Status: Chronic Assessment and Plan: Cessation counselling. (7) Protein-calorie malnutrition, moderate Current Visit: Yes Status: Suspected - Time Spent with Patient Total time spent is greater than 50% in coordination of care (as documented) at patient's floor/unit and/or counseling patient: Internal Medicine: Result - Labs CBC & Chem 7: 03/10/18 08:14 03/11/18 03:49 Labs: BMP 03/11/18 03:49 Sodium 135 L Potassium 3.6 Chloride 104 Carbon Dioxide 24 - VTE Reasons for not Prescribing Prophylaxis: Treatment not Indicated - Low risk for VTE Deep Vein Thrombosis/Pulmonary Embolism Present on Admission: No Consult Discharge Plan - Plan Referrals: Christie Rasmussen, LIONEL [Primary Care Provider] - (1) Alcohol withdrawal Qualifiers: Complication of substance-induced condition: uncomplicated Qualified Code(s): F10.230 - Alcohol dependence with withdrawal, uncomplicated (3) Syncope Qualifiers: Syncope type: unspecified Qualified Code(s): R55 - Syncope and collapse (5) Low back pain Qualifiers: Chronicity: chronic Back pain laterality: midline Sciatica presence: without sciatica Qualified Code(s): M54.5 - Low back pain; G89.29 - Other chronic pain
[2018-03-11] MEDS ORDERED: *HR* LORazepam 2 MG/ML VIAL IVP PRN ×3 (11:09)
[2018-03-11] MEDS ORDERED: Ringers Solution, Lactated 1,000 ML IVC SCH (11:15)
[2018-03-11] MEDS: *HR* Heparin 5,000 UNIT/ML VIAL SQ SCH (18:07)
[2018-03-11] MEDS: Melatonin 3 MG TABLET PO PRN (21:14)
[2018-03-12] MEDS: *HR* Heparin 5,000 UNIT/ML VIAL SQ SCH (05:12)
[2018-03-12] MEDS: BuPROPion XL (24 HR) 150 MG TABLET PO SCH (08:11)
[2018-03-12] MEDS: Venlafaxine XR (24 HR) 150 MG CAP.ER.24H PO SCH (08:11)
[2018-03-12] MEDS: Gabapentin 300 MG CAPSULE PO SCH ×2 (08:11→12:12)
[2018-03-12] MEDS: Vitamin B Complex/Vit C/Vit E 1 EACH TABLET PO SCH (08:11)
[2018-03-12] MEDS: Multivit/Ca/Min/Fe/FA 1 TAB TABLET PO SCH (08:11)
[2018-03-12] MEDS: Thiamine (B-1) 100 MG TABLET PO SCH (08:11)
[2018-03-12] MEDS: Nicotine 21 MG PATCH.TD24 TD SCH (08:12)
[2018-03-12] MEDS: Folic Acid 1 MG TABLET PO SCH (08:12)
[2018-03-12 11:07] VITALS: BP 133/90
--- NOTE | 2018-03-12 13:37 | Discharge Summary ---
- NOTES TO OUTPATIENT PROVIDER Notes to Outpatient Provider: Pt placed in observation for syncopal episode. Concern for seizure. Had been off alcohol for 24 hours. Monitored with no recurrent symptoms. Orders not resulted at time of discharge: Pending orders 03/12/18 13:11 EKG [ECG 12 lead ECG] [ECG] Routine Date of Encounter: 03/12/18 Time of Encounter: 13:30 - Discharge Diagnosis (1) Alcohol withdrawal Priority: Primary Status: Acute Qualifiers: Complication of substance-induced condition: uncomplicated Qualified Code (s): F10.230 - Alcohol dependence with withdrawal, uncomplicated (2) Alcohol abuse Priority: Secondary Status: Chronic (3) Syncope Priority: Secondary Status: Acute Qualifiers: Syncope type: unspecified Qualified Code(s): R55 - Syncope and collapse (4) Hyponatremia Priority: Secondary Status: Resolved (5) Low back pain Priority: Secondary Status: Chronic Qualifiers: Chronicity: chronic Back pain laterality: midline Sciatica presence: without sciatica Qualified Code(s): M54.5 - Low back pain; G89.29 - Other chronic pain (6) Tobacco abuse Priority: Secondary Status: Chronic (7) Protein-calorie malnutrition, severe Priority: Secondary Status: Chronic Hospital course: Mr. Sesay is a 43 year old male with hx of chronic alcohol abuse presented to ED after syncopal episode. He was placed in observation Mr Sesay was placed in observation for syncopal episode. His alcohol level was negative and it had been over 24 hours since last drink. He has prior hx of presumed withdrawal seizures. He was hyponatremic on admission and improved with IV fluids. He was monitored on telemetry and had no events. He improved overall and is able to ambulate on the unit without difficulty. He is now afebrile and has not required IV Ativan. He is ready for discharge home and outpatient follow up. I offered support service for alcohol and he feels he has what he needs (has quit for 5 years before.). Discharge discussed with: patient Time spent discussing smoking cessation with patient: 3 to 10 minutes - Time Spent with Patient Total time spent providing and/or coordinating discharge services: - Discharge Medications Home Medications: RX: Multivitamin [One Daily Essential] 1 tab PO DAILY 12/19/16 [History] RX: BuPROPion XL (24 HR) [Wellbutrin Xl] 150 mg PO DAILY 03/10/18 [History] RX: Gabapentin [Neurontin] 600 mg PO QID 03/10/18 [History] RX: Melatonin 3 mg PO QPM PRN 03/10/18 [History] RX: Nabumetone 750 mg PO BID 03/10/18 [History] RX: Venlafaxine HCl [Venlafaxine HCl ER] 150 mg PO DAILY 03/10/18 [History] RX: Nicotine Patch [Nicoderm] 21 mg TD DAILY patch.td24 03/12/18 [Rx] Allergies/Adverse Reactions: Allergy/AdvReac Type Severity Reaction Status Date / Time No Known Allergies Allergy Verified 03/10/18 10:12 Date of admission: 03/10/18 12:44 Primary care physician: Christie Rasmussen CNP Consults: 03/10/18 15:51 Consult to Decorating Supervisor [CONS] Routine Reason for SW Consult: Chr alcoholism 03/10/18 18:03 Consult to Nutrition [CONS] Routine Comment: Consulting Provider: NUTRITION Reason for Dietary Consult: MST Score Discharging clinician: Srinivasa Huff Anticipated date of discharge: 03/12/18 - Constitutional Vitals: Temp Pulse Resp BP Pulse Ox 97.9 F 58 15 133/90 98 03/12/18 11:06 03/12/18 11:06 03/12/18 11:06 03/12/18 11:06 03/12/18 11:06 General appearance: Present: A&O X 3, answers questions appropriately Exam: See below - Head Head exam: Present: normocephalic - Eye Eye exam: Present: EOMI, conjuntiva pink - ENT ENT exam: Present: mucous membranes moist - Respiratory Respiratory exam: Present: CTAB. Absent: rales, rhonchi, wheezes - Cardiovascular Cardiovascular exam: Present: RRR. Absent: systolic murmur, tachycardia - GI/Abdominal GI/Abdominal exam: Present: soft. Absent: tenderness - Extremities Exam Extremities exam: Present: warm. Absent: tenderness - Neurological Exam Neurological exam: Present: alert, oriented X3, no focal deficits - Skin Skin exam: Present: dry, warm - Patient Status Disposition: Home, Self-Care Condition: Good Functional capacity at discharge: independent ambulation Overall status at discharge: patient is progressing back to baseline - Discharge Instructions Instructions: How to Stop Smoking (DC), Alcohol Intoxication (DC) Follow Up With: Christie Rasmussen CNP [Primary Care Provider] - 03/14/18 - Diet and Activity Activity: increase activity as tolerated Diet: advance to your usual diet - VTE Reasons for not Prescribing Prophylaxis: Treatment not Indicated - Low risk for VTE Deep Vein Thrombosis/Pulmonary Embolism Present on Admission: No
--- NOTE | 2018-03-13 15:11 | Electrocardiograph Report ---
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
--- NOTE | 2018-03-14 17:20 | Electrocardiograph Report ---
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
== END 2018-03-12 14:54 | disposition home or self-care (01) ==
LOC: 2NENU 08:08 → EMEROOARM 08:08 → SUATTDRO 12:44 → 2NENU 13:14
PROVIDERS: ADMIT Internal Medicine; ATTEND Internal Medicine

== ENCOUNTER 2021-05-13 11:58 | Observation (INO) ==
[2021-05-13] MEDS ORDERED: *HR* LORazepam 2 MG/ML VIAL ONE (12:17)
[2021-05-13] MEDS ORDERED: Isovue-370 500 ML BOTTLE IVP ONE (12:36)
[2021-05-13] MEDS ORDERED: *HR* LORazepam 2 MG/ML VIAL IM STA (12:47)
[2021-05-13] MEDS ORDERED: levETIRAcetam 1,000 MG in 0.9 % Sodium Chloride 100 ML IVPB ONE (12:48)
[2021-05-13 13:32] LABS: Basophils % 0.2 %; Eosinophils # 0.1 K/mcL (0.0-0.6); Eosinophils % 0.9 %; Hematocrit 33.5 % (37.5-50.1); Hemoglobin 11.8 g/dL (12.9-16.9); Immature Granulocytes % 0.2 % (0-4); Lymphocytes # 1.4 K/mcL (0.6-4.6); Lymphocytes % 16.6 %; Mean Corpuscular HGB Conc 35.2 g/dL (31.6-35.5); Mean Corpuscular Hemoglobin 32.7 pg (28.0-33.3); Mean Corpuscular Volume 92.8 fL (83.0-100.0); Mean Platelet Volume 10.6 fL (9.4-12.4); Monocytes # 0.5 K/mcL (0.0-1.3); Monocytes % 5.6 %; Neutrophils # 6.4 K/mcL (1.6-8.9); Platelet Count 208 K/mcL (140-400); Red Blood Count 3.61 M/mcL (4.19-5.50); Segmented Neutrophils % 76.5 %; White Blood Count 8.4 K/mcL (4.3-11.1)
[2021-05-13 13:48] LABS: Bilirubin,Urine Negative (Negative); Blood,Urine Negative (Negative); Clarity,Urine Clear (Clear); Color,Urine Light-Yellow (Yellow); Glucose,Urine (UA) Normal (Normal); Ketones,Urine Trace mg/dL (Negative); Leukocyte Esterase,Urine Negative (Negative); Mucus,Urine Few per lpf (None-Few); Nitrite,Urine Negative (Negative); Protein,Urine 70 mg/dL (Neg-Trace); RBC,Urine 0-3 per hpf (0-3); Sperm,Urine Present per hpf (None Seen); Squamous Epithelial Cell,Urine Few per hpf (None-Few); Urobilinogen,Urine Normal (Normal); WBC,Urine 0-3 per hpf (0-3)
[2021-05-13 13:52] LABS: Amphetamine Screen,Urine Negative ng/mL (Cutoff=1000); Barbiturate Screen,Urine Negative ng/mL (Cutoff=200); Benzodiazepines Screen,Urine Negative ng/mL (Cutoff=200); Cannabinoid Screen,Urine Negative ng/mL (Cutoff = 50); Cocaine Screen,Urine Negative ng/mL (Cutoff= 300); Opiate Screen,Urine Positive ng/mL (Cutoff=300); Phencyclidine Screen,Urine Negative ng/mL (Cutoff=25)
[2021-05-13 13:55] LABS: BUN/Creatinine Ratio 8 (6-26); Blood Urea Nitrogen 5 mg/dL (6-20); Calcium 8.1 mg/dL (8.6-10.3); Carbon Dioxide 28 mEq/L (23-29); Chloride 102 mEq/L (98-107); Creatine Kinase 57 Units/L (30-223); Glucose 99 mg/dL (70-105); Magnesium 1.9 mg/dL (1.6-2.6); Osmolality,Calculated 273 (280-300); Potassium 3.7 mEq/L (3.5-5.1); Sodium 133 mEq/L (136-145); eGFR For African Americans > 60 (> 60); eGFR For Non-African Americans > 60 (> 60)
[2021-05-13] MEDS ORDERED: Naloxone 0.4 MG/ML INJ IVP PRN (14:47)
[2021-05-13] MEDS ORDERED: Acetaminophen 325 MG TABLET PO PRN (15:11)
[2021-05-13] MEDS ORDERED: *HR* Promethazine 25 MG/ML VIAL IM PRN (15:11)
[2021-05-13] MEDS ORDERED: Melatonin 3 MG TABLET PO PRN (15:11)
[2021-05-13] MEDS ORDERED: Gadolinium Contrast Agent (WT Based) IV PRN (16:35)
[2021-05-13] MEDS ORDERED: *HR* LORazepam 2 MG/ML VIAL IVP PRN (16:40)
[2021-05-13] MEDS ORDERED: GADOBUTROL 30 MMOL/30 ML VIAL IVP ONE (18:55)
[2021-05-14 05:26] LABS: Hematocrit 36.2 % (37.5-50.1); Hemoglobin 12.3 g/dL (12.9-16.9); Mean Corpuscular Hemoglobin 31.9 pg (28.0-33.3); Mean Corpuscular Volume 93.8 fL (83.0-100.0); Mean Platelet Volume 10.3 fL (9.4-12.4); Platelet Count 216 K/mcL (140-400); Red Blood Count 3.86 M/mcL (4.19-5.50); Red Cell Distribution Width 13.2 % (11.5-14.5); White Blood Count 7.2 K/mcL (4.3-11.1)
[2021-05-14 05:37] LABS: Magnesium 2.1 mg/dL (1.6-2.6); Phosphorous 3.5 mg/dL (2.7-4.5)
[2021-05-14 05:38] LABS: BUN/Creatinine Ratio 12 (6-26); Blood Urea Nitrogen 8 mg/dL (6-20); Calcium 8.7 mg/dL (8.6-10.3); Carbon Dioxide 29 mEq/L (23-29); Chloride 105 mEq/L (98-107); Glucose 96 mg/dL (70-105); Osmolality,Calculated 284 (280-300); Potassium 4.2 mEq/L (3.5-5.1); Sodium 138 mEq/L (136-145); eGFR For African Americans > 60 (> 60); eGFR For Non-African Americans > 60 (> 60)
[2021-05-14] MEDS ORDERED: levETIRAcetam 250 MG TABLET PO SCH (06:00)
[2021-05-14] MEDS ORDERED: Diclofenac Sodium (DR) 75 MG TABLET.DR PO PRN (08:42)
[2021-05-14] MEDS ORDERED: *HR* HYDROcodone/Acet 5/325 mg TABLET PO PRN (08:42)
[2021-05-14] MEDS ORDERED: Nicotine 14 MG PATCH.TD24 TD SCH (09:00)
[2021-05-14 10:53] VITALS: BP 117/82; PULSE 69; TEMP 97.5; O2SAT 99
== END 2021-05-14 16:12 | disposition home or self-care (01) ==
LOC: EMEROOARM 11:58 → 3BNU 11:58 → SUATTDRO 14:59 → 3BNU 15:41
PROVIDERS: ADMIT Family Medicine; ATTEND Family Medicine